=== PATIENT | female | born 1955 | race Caucasian/White ===

== ENCOUNTER → 2024-07-23 13:39 | Outpatient (BNVA) | payer MEDICARE, SELFPAY | PROVIDERS: PCP Family Medicine; Visit Provider Family Medicine | DX: Z00.00 Encounter for general adult medical examination without abnormal findings (principal); R73.09 Other abnormal glucose; Z13.6 Encounter for screening for cardiovascular disorders; E55.9 Vitamin D deficiency, unspecified; R53.81 Other malaise; R53.83 Other fatigue; Z51.81 Encounter for therapeutic drug level monitoring; E53.8 Deficiency of other specified B group vitamins | CPT/HCPCS: 80053; 80061; 82306; 82607; 83036; 84443; 85025 ==

== ENCOUNTER 2024-11-21 16:16 | Emergency (ER) | payer MEDICARE, SELFPAY ==
[2024-11-21 16:22] VITALS: BP 113/64; PULSE 72; O2SAT 92
[2024-11-21 16:27] VITALS: TEMP 36.2
--- NOTE | 2024-11-21 17:39 | XRR_ITS ---
PROCEDURE INFORMATION: Exam: XR Chest Exam date and time: 11/21/2024 5:51 PM Age: 69 years old Clinical indication: Cough; Additional info: Cough, vomiting TECHNIQUE: Imaging protocol: Radiologic exam of the chest. Views: 1 view. COMPARISON: No relevant prior studies available. FINDINGS: Lungs: Streaky left basilar opacities. Pleural spaces: Unremarkable. No pleural effusion. No pneumothorax. Heart/Mediastinum: Unremarkable. No cardiomegaly. Vasculature: Atherosclerotic aortic plaques. Diaphragm: Asymmetric elevation of the left hemidiaphragm. Bones/joints: Unremarkable. XR/XR chest 1V portable [id number] IMPRESSION: Left basilar opacities could represent infiltrate in the correct clinical setting.
--- NOTE | 2024-11-21 17:43 | W.ED.NAVMDI ---
HPI - Nausea/Vomiting/Diarrhea General: Chief complaint: Nausea/Vomiting/Diarrhea Stated complaint: n/v Time Seen by Provider: 11/21/24 16:56 Source: patient and family Mode of arrival: EMS Limitations: no limitations History of Present Illness: Patient is a 69-year-old female with a history of paraplegia that presents to the emergency department by ambulance with a chief complaint of nausea and vomiting. Patient's daughter states she has also had a cough. They deny any known exposure to influenza or COVID and states patient generally stays in the house. Patient has been afebrile. They report the cough began a little bit last night and continued this morning. She denies any fever or chills. She denies any abdominal pain. She denies any pain or burning with urination. EMS reported the patient did have low oxygen at 88% on their arrival. She was placed on 2 L by nasal cannula. On arrival to the emergency department the patient's oxygen saturation was 92% on room air when she was triaged. When I went into the room the patient was on 2 L by nasal cannula again with an oxygenation of 96 %. The patient does not normally use oxygen at home. Will attempt to wean her off during her stay. Associated nausea: Yes Associated symtoms: Reports nausea; Denies anxiety, chest pain, dysuria or headache(s) Related Data Home Medications ?Medication ?Instructions ?Recorded ?Confirmed bupropion HCl 150 mg 24 hr tablet, 150 mg PO QAM 08/09/24 11/09/24 extended release (Wellbutrin XL) Held on 09/02/24. Instructions: While starting Citalopram diphenoxylate-atropine 2.5 1 tab PO Q6H PRN 08/09/24 11/09/24 mg-0.025 mg tablet (Lomotil) phenazopyridine 200 mg tablet 200 mg PO TID PRN dysuria 08/09/24 11/09/24 Previous Rx's ?Medication ?Instructions ?Recorded cyanocobalamin (vitamin B-12) 1,000 mcg PO DAILY #30 tabs 08/15/24 1,000 mcg tablet (Vitamin B-12) atorvastatin 10 mg tablet (Lipitor) 10 mg PO DAILY #30 tabs 08/17/24 baclofen 10 mg tablet 10 mg PO TID #90 tabs 05/07/25 cetirizine 10 mg tablet (Zyrtec) 10 mg PO DAILY PRN allergy 09/02/24 symptoms #30 tabs cholestyramine (with sugar) 4 gram 4 g PO TID #368.76 grams 09/02/24 oral powder citalopram 20 mg tablet 20 mg PO DAILY #30 tabs 09/02/24 diclofenac sodium 1 % topical gel 2 g topical QID #100 grams 09/02/24 fludrocortisone 0.1 mg tablet 0.1 mg PO DAILY #30 tabs 09/02/24 meclizine 12.5 mg tablet 12.5 mg PO BID PRN dizziness #60 09/02/24 tabs pregabalin 75 mg capsule 75 mg PO TID #90 caps 09/02/24 oxycodone 10 mg tablet 10 mg PO Q8H PRN pain 30 days #90 10/21/24 tabs albuterol sulfate 90 mcg/actuation 2 inh inhalation .q4-6h PRN 11/21/24 aerosol inhaler (Ventolin HFA) shortness of breath or wheezing #6.7 grams cefdinir 300 mg capsule 300 mg PO BID #18 caps 11/21/24 doxycycline hyclate 100 mg capsule 100 mg PO Q12H 10 days #20 caps 11/21/24 ondansetron 4 mg disintegrating 4 mg PO .q6-8h PRN nausea and 11/21/24 tablet vomiting #10 tabs Allergies Allergy/AdvReac Type Severity Reaction Status Date / Time No Known Allergies Allergy Verified 11/09/24 13:56 Review of Systems General: Reports: 10 or more systems reviewed and unremarkable except in HPI and below Const: Denies: fever(s) or chills Eyes: Denies: eye discharge or eye redness ENMT: Denies: throat pain, odynophagia or swelling of lips/tongue Card: Denies: chest pain Resp: Reports: non-productive cough; Denies: dyspnea, wheezing or stridor GI: Reports: nausea and vomiting; Denies: abdominal pain or diarrhea : Denies: flank pain, difficulty voiding or dysuria Musc: Denies: neck pain, back pain or extremity pain Skin/Breast: Denies: rash, pruritus or erythema Neuro: Reports: weakness in extremities (Chronic in the lower legs that is unchanged from baseline); Denies: headache(s) or numbness in extremities Psych: Denies: anxiety Endo: Denies: polyuria or polydipsia Reymundo/Lymph: Denies: petechiae All/Imm: Denies: urticaria, throat swelling or tongue swelling PFSH ED PFSH: Medical History (Updated 11/21/24 @ 21:46 by SHAWN Russell) Hypotension Depression Peripheral neuropathy Lower extremity weakness Gait instability Paraplegia Hyperlipidemia Surgical History History of cholecystectomy Hx of hysterectomy H/O cervical spine surgery ~2013 Hx of fracture of right hip Monroe placement in initially. She had a follow up surgery one year later to remake ball and cup Surgeries ~2014 and 2015 Social History (Updated 11/21/24 @ 17:48 by SHAWN Russell) Smoking and tobacco/nicotine status: former use of tobacco/nicotine Quit status (tobacco/nicotine): has quit using Year quit tobacco: 2013 Former quit date comment: Quit after her back surgery - About 40 pack years Alcohol intake: current Alcohol intake frequency: few times a month Alcohol type: wine Substance/Drug Use: never Physical Exam Const: COMMON NORMALS: no acute distress, no limitations and alert GENERAL APPEARANCE: cooperative ORIENTATION/CONSCIOUSNESS: Yes awake HENMT: COMMON NORMALS: normocephalic, atraumatic, external ears normal, EAC's normal, TM's normal bilaterally and Normal external nose present HEAD & SCALP: normocephalic and atraumatic FACE & SINUS: normal facial exam NOSE: Normal external nose present EXTERNAL EAR: Yes external ears normal EXTERNAL AUDITORY CANAL: EAC's normal TYMPANIC MEMBRANE: TM's normal bilaterally MOUTH: Abnormal oral and palatal mucosa present other (Neurology); no drooling and no trismus THROAT: posterior oropharynx normal Eye: COMMON NORMALS: conjunctivae normal CONJUNCTIVA: Yes conjunctivae normal Neck/C-Spine: COMMON NORMALS: full ROM Lymph: LYMPHATIC: no lymphadenopathy noted Resp: COMMON NORMALS: normal respiratory effort and No retractions AUSCULTATION: crackles Laterality: left (Faint crackles left base), no rales, no rhonchi and no wheezes Cardio: COMMON NORMALS: regular rate and regular rhythm RATE: regular rate RHYTHM: regular rhythm GI: COMMON NORMALS: Normal to inspection, nondistended, normoactive bowel sounds present, Soft to palpation and non-tender PALPATION: Yes Soft to palpation Extremity: COMMON NORMALS: no calf tenderness and no pedal edema NARRATIVE EXTREMITY EXAM: Patient does have chronic bilateral lower extremity weakness. She states she can feel light touch but does report tingling at her baseline. Neuro: SENSORIUM/ORIENTATION: Yes alert GAIT: Yes Other gait observations present (Gait not tested due to the paraplegia) MOTOR EXAM: Abnormal motor strength present (Bilateral lower extremity weakness, unchanged from baseline.) Psych: COMMON NORMALS: cooperative and speech normal ATTITUDE: Yes calm SPEECH: Yes normal speech Skin: COMMON NORMALS: no rashes or lesions noted and no petechiae GENERAL SKIN EXAM: no rashes or lesions noted Course Reevaluation(s): Reevaluation #1: Patient was advised of the lab and imaging findings. We are still awaiting a urine sample from the patient. Patient continues to have mild cough. I did put in for some albuterol for her. She has been on 1 L of oxygen with an oxygen saturation between 94 and 96. I will turn off the oxygen to see if we can get her to do better so she can be discharged. Patient does have some questionable left lower lobe infiltrates on the x-ray. She did have some crackles in this area on exam and with her cough and oxygen need I am thinking this probably represents a pneumonia. Time: 19:12 Reevaluation #2: Patient reports that her nausea has resolved with the medication. Her oxygen saturation has come up to 92% on room air. She was given 1 g of Rocephin IV and will be discharged on cefdinir, doxycycline to cover the urinary tract infections and pneumonia as well as some Zofran to help with the nausea and vomiting. Time: 21:39 Vital Signs: Vital signs: Vital Signs Temperature 97.2 F L 11/21/24 16:27 Pulse Rate 72 11/21/24 21:09 Blood Pressure 126/67 11/21/24 21:09 Pulse Oximetry 92 11/21/24 21:09 Oxygen Delivery Me thod Room Air 11/21/24 21:09 Oxygen Flow Rate 1 11/21/24 19:01 MDM - Nausea/Vomiting/Diarrhea Medical Decision Making Patient and her daughter were advised of the exam, lab and imaging findings. The patient does appear to have some left basilar opacities that probably represent an infiltrate. The patient did have crackles on exam and has had a cough. Thankfully, she does not have an elevated white blood cell count or fever. She was noted to have a urinary tract infection as well. She was given 1 g of Rocephin in the emergency department by IV and will be discharged on cefdinir, doxycycline and Zofran for the nausea. She is mildly hypoxic on arrival but we are able to wean the oxygen off and her O2 sats were 92% on room air. She does not have any significant wheezing but was provided with an albuterol inhaler that she can use if she starts to feel short of breath or if she does develop any wheezing. The patient was advised to follow-up with her primary care provider next week for recheck and return to the emergency department with any worsening symptoms. Urine culture is pending. The patient and her daughter expressed understanding. Differential Diagnosis Likely gastroenteritis and dehydration Medical Records I reviewed the patient's medical records. Lab Data I reviewed the patient's lab results. 11/21/24 18:09 11/21/24 18:09 Radiology Impressions Chest X-Ray 11/21/24 17:39 IMPRESSION: Left basilar opacities could represent infiltrate in the correct clinical setting. Laboratory Results WBC 6.93 10^3/uL (3.29-11.43) 11/21/24 18:09 RBC 4.69 10^6/uL (3.85-5.65) 11/21/24 18:09 Hgb 13.60 g/dL (11.27-16.99) 11/21/24 18:09 Hct 43.0 % (36-47) 11/21/24 18:09 MCV 91.7 fl (85-98) 11/21/24 18:09 MCH 29.0 pg (27-33) 11/21/24 18:09 MCHC 31.6 g/dL (30-55) 11/21/24 18:09 RDW 13.9 % (12.1-15.1) 11/21/24 18:09 Plt Count 175 10^3/cmm (157-399) 11/21/24 18:09 MPV 11.2 fL (7.4-10.4) H 11/21/24 18:09 Neut % (Auto) 75.2 % 11/21/24 18:09 Lymph % (Auto) 20.2 % 11/21/24 18:09 [place]pherson % (Auto) 2.9 % 11/21/24 18:09 Eos % (Auto) 0.1 % 11/21/24 18:09 Baso % (Auto) 0.7 % 11/21/24 18:09 Neut # (Auto) 5.21 10^3/uL (1.8-7.7) 11/21/24 18:09 Lymph # (Auto) 1.4 10^3/uL (0.8-4.8) 11/21/24 18:09 [place] # (Auto) 0.2 10^3/uL (0.2-0.9) 11/21/24 18:09 Eos # (Auto) 0.0 10^3/uL (0.0-0.8) 11/21/24 18:09 Baso # (Auto) 0.1 10^3/uL (0.0-0.1) 11/21/24 18:09 Nucleated RBC % (auto) 0 % 11/21/24 18:09 Nucleated RBCs # 0.0 /100WBC 11/21/24 18:09 Sodium 140 mmol/L (136-145) 11/21/24 18:09 Potassium 4.4 mmol/L (3.5-5.1) 11/21/24 18:09 Chloride 101 mmol/L (98-107) 11/21/24 18:09 Carbon Dioxide 26 mmol/L (22-29) 11/21/24 18:09 Anion Gap 17.4 (5-19) 11/21/24 18:09 BUN 11 mg/dL (8-23) 11/21/24 18:09 Creatinine 0.5 mg/dL (0.5-0.9) 11/21/24 18:09 GFR Calculation Not Reportable 11/21/24 18:09 Glucose 104 mg/dL (65-115) 11/21/24 18:09 Calculated Osmolality 290 mOsm/kg (285-295) 11/21/24 18:09 Calcium 8.6 mg/dL (8.5-10.5) 11/21/24 18:09 Total Bilirubin 0.6 mg/dL (0.15-1.2) 11/21/24 18:09 AST 22 U/L (0-32) 11/21/24 18:09 ALT 10 U/L (0-33) 11/21/24 18:09 Alkaline Phosphatase 156 U/L (35-105) H 11/21/24 18:09 Total Protein 6.0 g/dL (6.6-8.7) L 11/21/24 18:09 Albumin 2.8 g/dL (3.5-5.2) L 11/21/24 18:09 Globulin 3.2 g/dL (1.3-4.6) 11/21/24 18:09 Urine Color Yellow (Yellow) 11/21/24 19:54 Urine Appearance Cloudy (CLEAR) A 11/21/24 19:54 Urine pH 5.5 (5-7) 11/21/24 19:54 Ur Specific [place] 1.016 (1.005-1.030) 11/21/24 19:54 Urine Protein 1+ (Negative) A 11/21/24 19:54 Urine Glucose (UA) Negative (Normal) 11/21/24 19:54 Urine Ketones 2+ (Negative) H 11/21/24 19:54 Urine Blood 2+ (Negative) A 11/21/24 19:54 Urine Nitrate Positive (Negative) A 11/21/24 19:54 Urine Bilirubin Negative (Negative) 11/21/24 19:54 Urine Urobilinogen 1.0 mg/dL (Negative) 11/21/24 19:54 Ur Leukocyte Esterase 3+ (Negative) A 11/21/24 19:54 Urine RBC 3-5 /hpf (0-2) 11/21/24 19:54 Urine WBC >100 /hpf (0-5) H 11/21/24 19:54 Ur Squamous Epith Cells 0-5 /hpf (0-5) 11/21/24 19:54 Amorphous Sediment Not Reportable 11/21/24 19:54 Urine Bacteria 4+ /hpf (NONE) H 11/21/24 19:54 Hyaline Casts 2.46 /lpf 11/21/24 19:54 All radiology interpretation(s) finalized by discharge Critical Care Time Critical Care Time: Critical Care Time: No Discharge Plan Discharge Patient Disposition: Home Clinical Impression: Infiltrate of lower lobe of left lung present on imaging study Cough Qualifiers: Cough type: acute Qualified Code(s): R05.1 - Acute cough Urinary tract infection Qualifiers: Urinary tract infection type: acute cystitis Hematuria presence: without hematuria Qualified Code(s): N30.00 - Acute cystitis without hematuria Nausea & vomiting Qualifiers: Vomiting type: unspecified Qualified Code(s): R11.2 - Nausea with vomiting, unspecified Condition: Stable Prescriptions: New cefdinir 300 mg capsule 300 mg PO BID Qty: 18 0RF doxycycline hyclate 100 mg capsule 100 mg PO Q12H 10 Days Qty: 20 0RF ondansetron 4 mg tablet,disintegrating 4 mg PO .q6-8h PRN (Reason: nausea and vomiting) Qty: 10 0RF albuterol sulfate [Ventolin HFA] 90 mcg/actuation HFA aerosol inhaler 2 inh inhalation .q4-6h PRN (Reason: shortness of breath or wheezing) Qty: 6.7 0RF No Action phenazopyridine 200 mg tablet 200 mg PO TID PRN (Reason: dysuria) diphenoxylate-atropine [Lomotil] 2.5-0.025 mg tablet 1 tab PO Q6H PRN bupropion HCl [Wellbutrin XL] 150 mg tablet extended release 24 hr 150 mg PO QAM meclizine 12.5 mg tablet 12.5 mg PO BID PRN (Reason: dizziness) Qty: 60 3RF baclofen 10 mg tablet 10 mg PO TID Qty: 90 3RF citalopram 20 mg tablet 20 mg PO DAILY Qty: 30 6RF fludrocortisone 0.1 mg tablet 0.1 mg PO DAILY Qty: 30 6RF diclofenac sodium 1 % gel 2 g topical QID Qty: 100 6RF Rx Instructions: apply to single elbow, wrist or hand; for hand includes palm/fingers/back of hand cetirizine [Zyrtec] 10 mg tablet 10 mg PO DAILY PRN (Reason: allergy symptoms) Qty: 30 6RF pregabalin 75 mg capsule 75 mg PO TID Qty: 90 2RF cholestyramine (with sugar) 4 gram powder 4 g PO TID Qty: 368.76 2RF Rx Instructions: administer w/meal; avoid other meds within 1hr before or 4-6hr after dose cyanocobalamin (vitamin B-12) [Vitamin B-12] 1,000 mcg tablet 1,000 mcg PO DAILY Qty: 30 6RF atorvastatin [Lipitor] 10 mg tablet 10 mg PO DAILY Qty: 30 6RF oxycodone 10 mg tablet 10 mg PO Q8H PRN (Reason: pain) 30 Days Qty: 90 0RF Discharge Orders: Discharge ED (Routine); Ordered 11/21/24 Ordered By: Mehran Vazquez Referrals: Israel Sebastian MD [Primary Care Provider, Family Practice] Discharge Diet: Advance as tolerated Discharge Activity: Resume usual activity Patient Instructions: Opioid Safety, Pain Management, Patient Portal & Brooke Instructions, Pneumonia (ED), Urinary Tract Infection in Women (ED), Acute Nausea and Vomiting (ED) Activity Restrictions/Additional Instructions: Take the medications as directed. Clear liquid diet for the next 12 to 24 hours then advance to a bland diet as tolerated. Use the inhaler as directed if needed, 2 puffs every 4-6 hours as needed for wheezing or shortness of breath. Follow-up with your doctor next week for recheck. Return to the emergency department with any worsening symptoms. Print Language: Nepalese Coding Level of Care Code ED Assistant Teaching Professor for Davian Rodriguez
[2024-11-21 18:15] LABS: Hematocrit 43.0 % (36-47); Hemoglobin 13.60 g/dL (11.27-16.99); Mean Corpuscular HGB Conc 31.6 g/dL (30-55); Mean Corpuscular Hemoglobin 29.0 pg (27-33); Mean Corpuscular Volume 91.7 fl (85-98); Nucleated Red Blood Cells % 0 %; Platelet Count 175 10^3/cmm (157-399); Red Blood Count 4.69 10^6/uL (3.85-5.65); White Blood Count 6.93 10^3/uL (3.29-11.43)
[2024-11-21] MEDS: ondansetron 2 mg/ML SDV 2 mL 4 MG IVP (18:15)
[2024-11-21 18:50] LABS: Alanine Aminotransferase 10 U/L (0-33); Albumin Level 2.8 g/dL (3.5-5.2); Alkaline Phosphatase 156 U/L (35-105); Anion Gap 17.4 (5-19); Aspartate Amino Transferase 22 U/L (0-32); Blood Urea Nitrogen 11 mg/dL (8-23); Calcium 8.6 mg/dL (8.5-10.5); Carbon Dioxide 26 mmol/L (22-29); Chloride 101 mmol/L (98-107); Globulin 3.2 g/dL (1.3-4.6); Glucose 104 mg/dL (65-115); Osmolality Calculated 290 mOsm/kg (285-295); Potassium 4.4 mmol/L (3.5-5.1); Sodium 140 mmol/L (136-145); Total Protein 6.0 g/dL (6.6-8.7)
[2024-11-21 19:01] VITALS: BP 146/71; PULSE 70; O2SAT 94
[2024-11-21 20:05] LABS: Glucose Urine UA Negative (Normal); Nitrate Urine Positive (Negative); Specific Gravity, Urine 1.016 (1.005-1.030)
[2024-11-21 20:10] LABS: Add Urine Microscopic? YES
[2024-11-21] MEDS: albuterol 8 gm MDI 2 PUFF INHALATION (20:11)
[2024-11-21 20:26] LABS: UA Slide Review UA Slide Review Perf
[2024-11-21] MEDS: cefTRIAXone 1,000 mg SDV 1000 MG IVP (21:07)
[2024-11-21 21:09] VITALS: BP 126/67; PULSE 72; O2SAT 92
[2024-11-21 23:23] VITALS: BP 139/64; PULSE 70; O2SAT 90
== END 2024-11-21 23:24 | disposition home or self-care (01) ==
PROVIDERS: Emergency Provider Physician Assistant; PCP Family Medicine
DX: R05.1 Acute cough (principal); R91.8 Other nonspecific abnormal finding of lung field; N30.00 Acute cystitis without hematuria; R11.2 Nausea with vomiting, unspecified; Z87.891 Personal history of nicotine dependence; E78.5 Hyperlipidemia, unspecified
CPT/HCPCS: 36415; 71045; 80053; 81001; 85025; 87077; 87086; 87186; 96361; 96374; 96375; 99284; J0696; J2405; J3535; J7120

== ENCOUNTER 2025-01-01 21:37 | Emergency (ER) | payer MEDICARE, SELFPAY ==
[2025-01-01 21:44] VITALS: BP 103/56; PULSE 68; RESP 18; TEMP 36.8; O2SAT 94; BMI 22.6
[2025-01-01 22:01] VITALS: BP 98/52; PULSE 72
--- NOTE | 2025-01-01 22:03 | XRR_ITS ---
PROCEDURE INFORMATION: Exam: XR Chest Exam date and time: 01/01/2025 10:10 PM Age: 69 years old Clinical indication: Other: Altered mental status; Additional info: AMS TECHNIQUE: Imaging protocol: Radiologic exam of the chest. 291 image(s) are submitted. Views: 1 view. COMPARISON: CR (CHEST, ) 11/21/2024 5:51 PM FINDINGS: Lungs: Limited evaluation due to oblique nature of the x-ray. Left hemidiaphragm silhouette is further obscured by underlying left lower lobe atelectasis or infiltrate, further progressed since prior study. Small left-sided pleural effusion is difficult to exclude. Borderline cardiomegaly. No pneumothorax seen. Right lung is clear. Pleural spaces: See Lungs finding. Heart/Mediastinum: See Lungs finding. Bones/joints: Unremarkable. XR/XR chest 1V portable [id number] IMPRESSION: Limited evaluation due to oblique nature of the x-ray. Left hemidiaphragm silhouette is further obscured by underlying left lower lobe atelectasis or infiltrate, further progressed since prior study. Small left-sided pleural effusion is difficult to exclude. Borderline cardiomegaly. No pneumothorax seen. Right lung is clear.
--- NOTE | 2025-01-01 22:11 | CTR_ITS ---
PROCEDURE INFORMATION: Exam: CT Head Without Contrast Exam date and time: 01/01/2025 10:30 PM Age: 69 years old Clinical indication: Altered mental status/memory loss; EMS arrival for hallucinations and confusion. ; Additional info: AMS TECHNIQUE: Imaging protocol: Computed tomography of the head without contrast. 3 image(s) are submitted. Radiation optimization: All CT scans at this facility use at least one of these dose optimization techniques: automated exposure control; mA and/or kV adjustment per patient size (includes targeted exams where dose is matched to clinical indication); or iterative reconstruction. COMPARISON: No relevant prior studies available. RADIATION DOSE METRICS: Total DLP (mGy-cm): 1641.78 FINDINGS: Brain: See Cerebral ventricles finding. Cerebral ventricles: Periventricular hypoattenuation is most likely due to small vessel ischemic disease. Paranasal sinuses: Visualized sinuses are unremarkable. No fluid levels. Mastoid air cells: Partial opacification of bilateral mastoid air cell and right-sided middle ear cavity, suggesting sinus disease and possible otitis media. Bones: Unremarkable. No acute fracture. Soft tissues: Unremarkable. CT/CT head wo con* [id number] IMPRESSION: Partial opacification of bilateral mastoid air cell and right-sided middle ear cavity, suggesting sinus disease and possible otitis media. No acute intracranial abnormality identified.
--- NOTE | 2025-01-01 22:35 | W.ED.GENADLT ---
HPI - General Adult General: Chief complaint: General Medical Stated complaint: ABNORMAL VITALS History of Present Illness: 69-year-old female presenting from [place] with altered mental status. Evidently, she had been confused, possibly hallucinating, and had a low blood pressure at [place] upon waking this evening. Blood pressure improved, patient is now alert. Daughter states that she has been saying strange things the last day or 2. She thought she may be getting a urinary tract infection, as the symptoms have been present with prior UTIs. Daughter also noticed that her face was droopy on 1 side, which is a new symptom. Unknown duration this evening. Related Data Home Medications ?Medication ?Instructions ?Recorded ?Confirmed bupropion HCl 150 mg 24 hr tablet, 150 mg PO QAM 08/09/24 11/23/24 extended release (Wellbutrin XL) Held on 09/02/24. Instructions: While starting Citalopram diphenoxylate-atropine 2.5 1 tab PO Q6H PRN 08/09/24 11/23/24 mg-0.025 mg tablet (Lomotil) phenazopyridine 200 mg tablet 200 mg PO TID PRN dysuria 08/09/24 11/23/24 Previous Rx's ?Medication ?Instructions ?Recorded cyanocobalamin (vitamin B-12) 1,000 mcg PO DAILY #30 tabs 08/15/24 1,000 mcg tablet (Vitamin B-12) atorvastatin 10 mg tablet (Lipitor) 10 mg PO DAILY #30 tabs 08/17/24 baclofen 10 mg tablet 10 mg PO TID #90 tabs 09/02/24 cetirizine 10 mg tablet (Zyrtec) 10 mg PO DAILY PRN allergy 09/02/24 symptoms #30 tabs cholestyramine (with sugar) 4 gram 4 g PO TID #368.76 grams 09/02/24 oral powder citalopram 20 mg tablet 20 mg PO DAILY #30 tabs 09/02/24 diclofenac sodium 1 % topical gel 2 g topical QID #100 grams 09/02/24 fludrocortisone 0.1 mg tablet 0.1 mg PO DAILY #30 tabs 09/02/24 meclizine 12.5 mg tablet 12.5 mg PO BID PRN dizziness #60 09/02/24 tabs pregabalin 75 mg capsule 75 mg PO TID #90 caps 09/02/24 oxycodone 10 mg tablet 10 mg PO Q8H PRN pain 30 days #90 10/21/24 tabs albuterol sulfate 90 mcg/actuation 2 inh inhalation .q4-6h PRN 11/21/24 aerosol inhaler (Ventolin HFA) shortness of breath or wheezing #6.7 grams ondansetron 4 mg disintegrating 4 mg PO .q6-8h PRN nausea and 11/21/24 tablet vomiting #10 tabs cefdinir 300 mg capsule 300 mg PO BID #18 caps 01/02/25 Allergies Allergy/AdvReac Type Severity Reaction Status Date / Time No Known Allergies Allergy Verified 11/09/24 13:56 PFSH ED PFSH: Medical History (Updated 01/02/25 @ 02:58 by Juan Jose Sofia DO) Hypotension Depression Peripheral neuropathy Lower extremity weakness Gait instability Paraplegia Hyperlipidemia Surgical History History of cholecystectomy Hx of hysterectomy H/O cervical spine surgery ~2013 Hx of fracture of right hip [place] placement in initially. She had a follow up surgery one year later to remake ball and cup Surgeries ~2014 and 2015 Social History Smoking and tobacco/nicotine status: former use of tobacco/nicotine Quit status (tobacco/nicotine): has quit using Year quit tobacco: 2013 Former quit date comment: Quit after her back surgery - About 40 pack years Alcohol intake: current Alcohol intake frequency: few times a month Alcohol type: wine Substance/Drug Use: never Physical Exam Const: COMMON NORMALS: alert GENERAL APPEARANCE: cooperative and frail appearing ORIENTATION/CONSCIOUSNESS: Yes awake, Yes oriented to person and Yes oriented to place HENMT: COMMON NORMALS: normocephalic, atraumatic and Normal external nose present HEAD & SCALP: normocephalic and atraumatic FACE & SINUS: no ecchymosis and no edema NOSE: Normal external nose present and Normal nares present Eye: COMMON NORMALS: Equal, round and reactive pupils present and EOMs intact bilaterally CONJUNCTIVA: Yes conjunctival abnormal positive left conjunctival injection PUPIL: Yes Equal, round and reactive pupils present Chest: CHEST: Yes Symmetrical chest wall rise Resp: COMMON NORMALS: normal respiratory effort, No use of accessory muscles and clear to auscultation bilaterally AUSCULTATION: clear to auscultation bilaterally Cardio: COMMON NORMALS: regular rate and regular rhythm RATE: regular rate RHYTHM: regular rhythm GI: COMMON NORMALS: Soft to palpation and non-tender PALPATION: Yes Soft to palpation Neuro: SENSORIUM/ORIENTATION: Yes alert, Yes oriented to person and Yes oriented to place CRANIAL NERVES: Yes CN VII (facial) Laterality: right CN VII findings: facial droop (Mild), unable to raise eyebrow(s) and asymmetrical smile COORDINATION/BALANCE: [id number] test normal SPEECH: speech normal SENSORY EXAM: Yes extremities (Intact) MOTOR EXAM: Pronator motor function not present COORDINATION: [id number] test normal Course Vital Signs: Vital signs: Vital Signs Temperature 98.3 F 01/01/25 21:44 Pulse Rate 65 01/02/25 03:27 Respiratory Rate 18 01/01/25 21:44 Blood Pressure 121/64 01/02/25 03:27 Pulse Oximetry 90 01/02/25 03:27 Oxygen Delivery Me thod Room Air 01/01/25 21:44 MDM - General Adult Medical Decision Making The patient answers questions here. She may have a mild right-sided facial droop. No other acute neurologic symptoms. Her potassium was 2.6. Her glucose was 62. CBC and BMP are otherwise not remarkable. Her urinalysis shows greater than 100 white blood cells, some red blood cells, and 2+ leukocyte esterase. Her CRP is elevated. She appears to have a urinary tract infection. She grew E. coli in her urine 1 month ago. She is given IV Rocephin for this. Sensitivities were sensitive at that time. Her potassium was repleted both orally and IV. Chest x-ray she has a potential left lower lobe infiltrate or small effusion. She will be allowed back to the nursing facility on cefdinir. Recheck potassium in 48 hours. Return for any problems. The patient's daughter was counseled on diagnosis and treatment. Lab Data 01/01/25 22:49 01/01/25 22:49 Radiology Impressions Chest X-Ray 01/01/25 22:03 IMPRESSION: Limited evaluation due to oblique nature of the x-ray. Left hemidiaphragm silhouette is further obscured by underlying left lower lobe atelectasis or infiltrate, further progressed since prior study. Small left-sided pleural effusion is difficult to exclude. Borderline cardiomegaly. No pneumothorax seen. Right lung is clear. Head CT 01/01/25 22:11 IMPRESSION: Partial opacification of bilateral mastoid air cell and right-sided middle ear cavity, suggesting sinus disease and possible otitis media. No acute intracranial abnormality identified. Laboratory Results WBC 7.16 10^3/uL (3.29-11.43) 01/01/25 22:49 RBC 4.78 10^6/uL (3.85-5.65) 01/01/25 22:49 Hgb 13.50 g/dL (11.27-16.99) 01/01/25 22:49 Hct 44.9 % (36-47) 01/01/25 22: MCV 93.9 fl (85-98) 01/01/25 22:49 MCH 28.2 pg (27-33) 01/01/25: MCHC 30.1 g/dL (30-55) 01/01/25 22:49 RDW 15.7 % (12.1-15.1) H 01/01/25 22:49 Plt Count 159 10^3/cmm (157-399) 01/01/25 22:49 MPV 11.1 fL (7.4-10.4) H 01/01/25 22:49 Neut % (Auto) 58.8 % 01/01/25 22:49 Lymph % (Auto) 27.7 % 01/01/25 22:49 [place] % (Auto) 9.6 % 01/01/25 22:49 Eos % (Auto) 2.2 % 01/01/25 22:49 Baso % (Auto) 1.0 % 01/01/25 22:49 Neut # (Auto) 4.21 10^3/uL (1.8-7.7) 01/01/25 22:49 Lymph # (Auto) 2.0 10^3/uL (0.8-4.8) 01/01/25 22:49 [place] # (Auto) 0.7 10^3/uL (0.2-0.9) 01/01/25 22:49 Eos # (Auto) 0.2 10^3/uL (0.0-0.8) 01/01/25 22:49 Baso # (Auto) 0.1 10^3/uL (0.0-0.1) 01/01/25 22:49 Nucleated RBC % (auto) 0 % 01/01/25 22:49 Nucleated RBCs # 0.0 /100WBC 01/01/25 22:49 Sodium 147 mmol/L (136-145) H 01/01/25 22:49 Potassium 2.6 mmol/L (3.5-5.1) L* 01/01/25 22:49 Chloride 102 mmol/L (98-107) 01/01/25 22:49 Carbon Dioxide 28 mmol/L (22-29) 01/01/25 22:49 Anion Gap 19.6 (5-19) H 01/01/25 22:49 BUN 9 mg/dL (8-23) 01/01/25 22:49 Creatinine 0.6 mg/dL (0.5-0.9) 01/01/25 22:49 GFR Calculation Not Reportable 01/01/25 22:49 Glucose 62 mg/dL (65-115) L 01/01/25 22:49 POC Glucose 104 mg/dL (70-110) 01/02/25 02:38 Calculated Osmolality 301 mOsm/kg (285-295) H 01/01/25 22:49 Lactic Acid 1.1 mmol/L (0.5-2.2) 01/01/25 22:49 Calcium 8.6 mg/dL (8.5-10.5) 01/01/25 22:49 Total Bilirubin 0.7 mg/dL (0.15-1.2) 01/01/25 22:49 AST 29 U/L (0-32) 01/01/25 22:49 ALT 12 U/L (0-33) 01/01/25 22:49 Alkaline Phosphatase 98 U/L (35-105) 01/01/25 22:49 C-Reactive Protein 31.9 mg/L (0.0-4.9) H 01/01/25 22:49 Total Protein 5.8 g/dL (6.6-8.7) L 01/01/25 22:49 Albumin 2.8 g/dL (3.5-5.2) L 01/01/25 22:49 Globulin 3.0 g/dL (1.3-4.6) 01/01/25 22:49 Urine Color Dark yellow (Yellow) A 01/01/25 23:07 Urine Appearance Turbid (CLEAR) A 01/01/25 23:07 Urine pH 6.0 (5-7) 01/01/25 23:07 Ur Specific [place] 1.016 (1.005-1.030) 01/01/25 23:07 Urine Protein 2+ (Negative) A 01/01/25 23:07 Urine Glucose (UA) Negative (Normal) 01/01/25 23:07 Urine Ketones 1+ (Negative) H 01/01/25 23:07 Urine Blood 3+ (Negative) A 01/01/25 23:07 Urine Nitrate Positive (Negative) A 01/01/25 23:07 Urine Bilirubin Negative (Negative) 01/01/25 23:07 Urine Urobilinogen 1.0 mg/dL (Negative) 01/01/25 23:07 Ur Leukocyte Esterase 2+ (Negative) A 01/01/25 23:07 Urine RBC 21-50 /hpf (0-2) H 01/01/25 23:07 Urine WBC >100 /hpf (0-5) H 01/01/25 23:07 Ur Squamous Epith Cells 6-10 /hpf (0-5) 01/01/25 23:07 Amorphous Sediment Not Reportable 01/01/25 23:07 Urine Bacteria 4+ /hpf (NONE) H 01/01/25 23:07 Hyaline Casts 6.90 /lpf 01/01/25 23:07 Urine Mucus 1+ /hpf 01/01/25 23:07 All radiology interpretation(s) finalized by discharge Discharge Plan Discharge Patient Disposition: Home Clinical Impression: Acute UTI, Acute hypokalemia Condition: Stable Prescriptions: Continued cefdinir 300 mg capsule 300 mg PO BID Qty: 18 0RF No Action phenazopyridine 200 mg tablet 200 mg PO TID PRN (Reason: dysuria) diphenoxylate-atropine [Lomotil] 2.5-0.025 mg tablet 1 tab PO Q6H PRN bupropion HCl [Wellbutrin XL] 150 mg tablet extended release 24 hr 150 mg PO QAM meclizine 12.5 mg tablet 12.5 mg PO BID PRN (Reason: dizziness) Qty: 60 3RF baclofen 10 mg tablet 10 mg PO TID Qty: 90 3RF citalopram 20 mg tablet 20 mg PO DAILY Qty: 30 6RF fludrocortisone 0.1 mg tablet 0.1 mg PO DAILY Qty: 30 6RF diclofenac sodium 1 % gel 2 g topical QID Qty: 100 6RF Rx Instructions: apply to single elbow, wrist or hand; for hand includes palm/fingers/back of hand cetirizine [Zyrtec] 10 mg tablet 10 mg PO DAILY PRN (Reason: allergy symptoms) Qty: 30 6RF pregabalin 75 mg capsule 75 mg PO TID Qty: 90 2RF cholestyramine (with sugar) 4 gram powder 4 g PO TID Qty: 368.76 2RF Rx Instructions: administer w/meal; avoid other meds within 1hr before or 4-6hr after dose cyanocobalamin (vitamin B-12) [Vitamin B-12] 1,000 mcg tablet 1,000 mcg PO DAILY Qty: 30 6RF atorvastatin [Lipitor] 10 mg tablet 10 mg PO DAILY Qty: 30 6RF oxycodone 10 mg tablet 10 mg PO Q8H PRN (Reason: pain) 30 Days Qty: 90 0RF ondansetron 4 mg tablet,disintegrating 4 mg PO .q6-8h PRN (Reason: nausea and vomiting) Qty: 10 0RF albuterol sulfate [Ventolin HFA] 90 mcg/actuation HFA aerosol inhaler 2 inh inhalation .q4-6h PRN (Reason: shortness of breath or wheezing) Qty: 6.7 0RF Discharge Orders: Discharge ED (Routine); Ordered 01/02/25 Ordered By: Juan Jose Sofia Referrals: Israel Sebastian MD [Primary Care Provider, Family Practice] - 1-3 days Patient Instructions: Hypokalemia (ED), Urinary Tract Infection in Older Adults (ED), Opioid Safety, Pain Management, Patient Portal & [place] Instructions Activity Restrictions/Additional Instructions: You need to have your potassium rechecked in 48 hours. Inform your doctor regarding this. Antibiotics for urinary tract infection. As directed. Return for worsening mental status, fever despite 2-3 more doses of antibiotics, any other concerning symptoms. Print Language: Algerian Coding Level of Care Code ED Technical Support Intern for Davian Rodriguez
[2025-01-01 23:00] VITALS: BP 128/63; PULSE 66
[2025-01-01 23:07] LABS: Hematocrit 44.9 % (36-47); Hemoglobin 13.50 g/dL (11.27-16.99); Mean Corpuscular HGB Conc 30.1 g/dL (30-55); Mean Corpuscular Hemoglobin 28.2 pg (27-33); Mean Corpuscular Volume 93.9 fl (85-98); Nucleated Red Blood Cells % 0 %; Platelet Count 159 10^3/cmm (157-399); Red Blood Count 4.78 10^6/uL (3.85-5.65); White Blood Count 7.16 10^3/uL (3.29-11.43)
[2025-01-01 23:22] LABS: Glucose Urine UA Negative (Normal); Nitrate Urine Positive (Negative); Specific Gravity, Urine 1.016 (1.005-1.030)
[2025-01-01 23:24] LABS: Add Urine Microscopic? YES
[2025-01-01 23:30] VITALS: BP 116/72; PULSE 70
[2025-01-01 23:31] LABS: Alanine Aminotransferase 12 U/L (0-33); Albumin Level 2.8 g/dL (3.5-5.2); Alkaline Phosphatase 98 U/L (35-105); Aspartate Amino Transferase 29 U/L (0-32); Blood Urea Nitrogen 9 mg/dL (8-23); Calcium 8.6 mg/dL (8.5-10.5); Carbon Dioxide 28 mmol/L (22-29); Chloride 102 mmol/L (98-107); Creatinine Clr Calc Pharmacy 64.2556; Globulin 3.0 g/dL (1.3-4.6); Glucose 62 mg/dL (65-115); Osmolality Calculated 301 mOsm/kg (285-295); Sodium 147 mmol/L (136-145); Total Protein 5.8 g/dL (6.6-8.7)
[2025-01-01 23:32] LABS: Lactic Sepsis W/Reflex 1.1 mmol/L (0.5-2.2)
[2025-01-01 23:43] LABS: Anion Gap 19.6 (5-19); Potassium 2.6 mmol/L (3.5-5.1)
[2025-01-01 23:47] LABS: UA Slide Review UA Slide Review Perf
[2025-01-02] VITALS: BP 109/51
[2025-01-02 00:31] VITALS: BP 110/63; PULSE 63; O2SAT 92
[2025-01-02] MEDS: potassium chloride oral liq 20 mEq/15 mL UDC 40 MEQ PO (00:37)
[2025-01-02] MEDS: cefTRIAXone 1,000 mg SDV 1000 MG IVP (00:37)
[2025-01-02 01:01] VITALS: BP 118/68; PULSE 67; O2SAT 92
[2025-01-02] MEDS: lidocaine 1% 5 ML in potassium chloride premix 100 ML 52.5 ML IV (01:02)
[2025-01-02 01:30] VITALS: BP 106/69; PULSE 70
[2025-01-02 03:27] VITALS: BP 121/64; PULSE 65; O2SAT 90
== END 2025-01-02 03:21 | disposition home or self-care (01) ==
PROVIDERS: Emergency Provider Emergency Medicine; PCP Family Medicine
DX: N39.0 Urinary tract infection, site not specified (principal); E87.6 Hypokalemia; Z87.891 Personal history of nicotine dependence; E78.5 Hyperlipidemia, unspecified
CPT/HCPCS: 36416; 70450; 71045; 80053; 81001; 82962; 83605; 85025; 86140; 87077; 87086; 87186; 96365; 96366; 96375; 99285; J0696; J3480; J7030; J7799; J9999

== ENCOUNTER 2025-01-15 00:18 | Inpatient (IN) | payer MEDICARE, SELFPAY ==
[2025-01-15] VITALS (9 sets, daily range): BP systolic 94–105; BP diastolic 51–67; PULSE 65–78; RESP 14–18; TEMP 36.7–36.9; O2SAT 91–96; BMI 21.1
--- NOTE | 2025-01-15 00:48 | XRR_ITS ---
PROCEDURE INFORMATION: Exam: XR Right Tibia and Fibula Exam date and time: 01/15/2025 12:52 AM Age: 69 years old Clinical indication: Pain and injury or trauma; Fall; Blunt trauma; Lower leg; Right; Additional info: HX of fall, report of FX from outside XR TECHNIQUE: Imaging protocol: Radiologic exam of the right tibia and fibula. Views: 2 views. COMPARISON: No relevant prior studies available. FINDINGS: Bones/joints: Mildly displaced bimalleolar fractures. The remaining imaged osseous structures are intact. The bones appear osteopenic. Soft tissues: Bimalleolar soft tissue edema is present. XR/XR tibia fibula RT 2V [id number] IMPRESSION: 1. Mildly displaced bimalleolar fractures. 2. Osteopenia. 3. Bimalleolar soft tissue edema, consistent with soft tissue/ligamentous injury. 4. Given substantial osteopenia, recommend CT ankle to exclude occult ankle fractures.
--- NOTE | 2025-01-15 00:48 | XRR_ITS ---
PROCEDURE INFORMATION: Exam: XR Pelvis Exam date and time: 01/15/2025 1:30 AM Age: 69 years old Clinical indication: Injury or trauma; Fall; Blunt trauma (contusions or hematomas); Bilateral; Prior surgery; Surgery date: 6+ months; Surgery type: Bilat hips; Additional info: HX of hip dislocation, leg pain today TECHNIQUE: Imaging protocol: Radiologic exam of the pelvis. Views: 1 or 2 view. COMPARISON: No relevant prior studies available. 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 Proximal femoral cerclage is noted. Surgical components appear well aligned and without evidence of failure/loosening. No acute periprosthetic fracture is noted on this single AP view. The remaining imaged osseous structures are intact. Osseous alignment is normal. Soft tissues: Unremarkable. XR/XR pelvis 1-2V* [id number] IMPRESSION: No acute fracture or dislocation within the limits of the single AP view exam. If high clinical concern for acute osseous injury is present, CT pelvis without contrast is warranted.
--- NOTE | 2025-01-15 00:48 | XRR_ITS ---
PROCEDURE INFORMATION: Exam: XR Left Tibia and Fibula Exam date and time: 01/15/2025 1:10 AM Age: 69 years old Clinical indication: Pain; Lower leg; Left; Additional info: HX of fall, possible FX TECHNIQUE: Imaging protocol: Radiologic exam of the left tibia and fibula. Views: 2 views. COMPARISON: No relevant prior studies available. FINDINGS: Bones/joints: The bones appear osteopenic. No acute fracture. Osseous alignment is normal. Soft tissues: Normal. XR/XR tibia fibula LT 2V [id number] IMPRESSION: 1. Suggested osteopenia. 2. No acute osseous abnormality.
[2025-01-15 01:17] LABS: Hematocrit 41.2 % (36-47); Hemoglobin 13.30 g/dL (11.27-16.99); Mean Corpuscular HGB Conc 32.3 g/dL (30-55); Mean Corpuscular Hemoglobin 28.7 pg (27-33); Mean Corpuscular Volume 89.0 fl (85-98); Nucleated Red Blood Cells % 0 %; Platelet Count 279 10^3/cmm (157-399); Red Blood Count 4.63 10^6/uL (3.85-5.65); White Blood Count 8.90 10^3/uL (3.29-11.43)
[2025-01-15 01:38] LABS: Alanine Aminotransferase 13 U/L (0-33); Albumin Level 2.7 g/dL (3.5-5.2); Alkaline Phosphatase 100 U/L (35-105); Anion Gap 13.3 (5-19); Aspartate Amino Transferase 19 U/L (0-32); Blood Urea Nitrogen 13 mg/dL (8-23); Calcium 8.7 mg/dL (8.5-10.5); Carbon Dioxide 34 mmol/L (22-29); Chloride 99 mmol/L (98-107); Creatinine Clr Calc Pharmacy 62.5743; Globulin 3.2 g/dL (1.3-4.6); Glucose 81 mg/dL (65-115); Magnesium 1.8 mg/dL (1.7-2.3); Osmolality Calculated 297 mOsm/kg (285-295); Sodium 144 mmol/L (136-145); Total Protein 5.9 g/dL (6.6-8.7)
[2025-01-15 01:42] LABS: Potassium 2.3 mmol/L (3.5-5.1)
[2025-01-15] MEDS: lidocaine 1% 5 ML in potassium chloride premix 100 ML 26.25 ML IV (02:47)
--- NOTE | 2025-01-15 02:48 | CTR_ITS ---
PROCEDURE INFORMATION: Exam: CT Right Lower Extremity Without Contrast, Ankle Exam date and time: 01/15/2025 3:05 AM Age: 69 years old Clinical indication: Abnormal findings; Abnormal imaging study; XR tib fib; Additional info: Known FX, ? acuity TECHNIQUE: Imaging protocol: CT of the right lower extremity without contrast was performed. Exam focused on the ankle. Radiation optimization: All CT scans at this facility use at least one of these dose optimization techniques: automated exposure control; mA and/or kV adjustment per patient size (includes targeted exams where dose is matched to clinical indication); or iterative reconstruction. COMPARISON: CR (LOW EXM, ) 01/15/2025 12:52 AM RADIATION DOSE METRICS: Total DLP (mGy-cm): 151.28 FINDINGS: Bones/joints: There is severe osteopenia. Acute transverse fracture at the distal tibial metaphysis with mild impaction. No significant angulation or intra-articular extension. Acute Vaughn B lateral malleolar fracture with mild impaction but without significant displacement or angulation. No widening ankle mortise. Soft tissues: Normal. CT/CT ankle RT wo con* [id number] IMPRESSION: 1. Acute transverse fracture at the distal tibial metaphysis with mild impaction. No significant angulation or intra-articular extension. 2. Acute Vaughn B lateral malleolar fracture with mild impaction but without significant displacement or angulation.
[2025-01-15 03:05] LABS: Glucose Urine UA Negative (Normal); Nitrate Urine Positive (Negative); Specific Gravity, Urine 1.017 (1.005-1.030)
[2025-01-15 03:10] LABS: Add Urine Microscopic? YES
--- NOTE | 2025-01-15 03:20 | ED_ITS ---
HPI - Extremity Problem 2 General: Chief complaint: Extremity Injury, Lower Stated complaint: RT rib fx x 9 days ago History of Present Illness: 69 yo F with Hx of dementia and prior ri ght hip fracture with subsequent hardware presents with right lower leg/ankle pain and increased right foot droop. Per daughter, bruising and a small laceration on the metz were noted days ago; facility staff gave inconsistent accounts of an injury during transfers. Pt has chronic plantar flexion/inversion of the right ankle, reportedly worse now. Today at [facility], x-rays were reportedly obtained showing fractures of ?both top and bottom bone? on the right, and pt was sent to the ER due to pain (pt often refuses pain meds). Daughter denies clear recollection from pt due to dementia. No clear new hip pain reported; daughter notes longstanding bedbound status (~1 year). Two weeks ago pt was seen for UTI; K was 2.5. Daughter reports intermittent hallucination-like statements. ROS otherwise limited by dementia. Related Data Home Medications ?Medication ?Instructions ?Recorded ?Confirmed bupropion HCl 150 mg 24 hr tablet, 150 mg PO QAM 08/0911/23/24 extended release (Wellbutrin XL) Held on 09/02/24. Instructions: While starting Citalopram diphenoxylate-atropine 2.5 1 tab PO Q6H PRN 08/09/24 0 11/23/24 mg-0.025 mg tablet (Lomotil) phenazopyridine 200 mg tablet 200 mg PO TID PRN dysuri a 08/09/24 11/23/24 Previous Rx's ?Medication ?Instructions ?Recorded cyanocobalamin (vitamin B-12) 1,000 mcg PO DAILY #30 t abs 08/15/24 1,000 mcg tablet (Vitamin B-12) atorvastatin 10 mg tablet (Lipitor) 10 mg PO DAILY #30 tabs 08/17/24 baclofen 10 mg tablet 10 mg PO TID #90 tabs cetirizine 10 mg tablet (Zyrtec) 10 mg PO DAILY PRN al lergy 09/02/24 symptoms #30 tabs cholestyramine (with sugar) 4 gram 4 g PO TID #368.76 grams 09/02/24 oral powder citalopram 20 mg tablet 20 mg PO DAILY #30 tabs 0511/20 diclofenac sodium 1 % topical gel 2 g topical QID #100 grams 09/02/24 fludrocortisone 0.1 mg tablet 0.1 mg PO DAILY #30 tabs 09/02/24 meclizine 12.5 mg tablet 12.5 mg PO BID PRN dizziness #60 09/02/24 tabs oxycodone 10 mg tablet 10 mg PO Q8H PRN pain 30 day s #90 10/21/24 tabs albuterol sulfate 90 mcg/actuation 2 inh inhalation .q 4-6h PRN 11/21/24 aerosol inhaler (Ventolin HFA) shortness of breath or wheezing #6.7 grams ondansetron 4 mg disintegrating 4 mg PO .q6-8h PRN grace sea and 11/21/24 tablet vomiting #10 tabs cefdinir 300 mg capsule 300 mg PO BID #18 caps 01/02 pregabalin 75 mg capsule 75 mg PO TID #90 caps Allergies Allergy/AdvReac Type Severity Reaction Status Date / Time No Known Allergies Allergy Verified 11/09/24 13:56 PFSH ED 2 PFSH: Medical History (Updated 01/15/25 @ 03:31 by Familia Cortez MD) Hypotension Depression Peripheral neuropathy Lower extremity weakness Gait instability Paraplegia Hyperlipidemia Surgical History History of cholecystectomy Hx of hysterectomy H/O cervical spine surgery ~2013 Hx of fracture of right hip Monroe placement in initially. She had a follow up surgery one year later to remake ball and cup Surgeries ~2014 and 2015 Social History Smoking and tobacco/nicotine status: former use of tobacco/nicotine Quit status (tobacco/nicotine): has quit using Year quit tobacco: 2013 Former quit date comment: Quit after her back surgery - About 40 pack years Alcohol intake: current Alcohol intake frequency: few times a month Alcohol type: wine Substance/Drug Use: never Physical Exam 2 Narrative: EXAM NARRATIVE: Gen: Alert, pleasant, baseline dementia per daughter. Psych: Pleasantly demented; possible hallucinations per history. Extremities: Very limited motion of bilateral legs. No obvious length discrepancy or external rotation to suggest acute hip dislocation. MSK: Chronic plantar flexion and inversion of right ankle per daughter, possibly more pronounced today; no obvious new deformity appreciated beyond chronic changes. Skin: Bruising on anterior left metz. Approximately 1.5 cm linear partial- thickness laceration on metz, subacute and not amenable to primary repair. Neuro: Oriented baseline unclear due to dementia; exam otherwise limited by cooperation. HENMT: COMMON NORMALS: normocephalic and atraumatic HEAD & SCALP: n ormocephalic and atraumatic Eye: COMMON NORMALS: Equal, round and reactive pupils present, EOMs intact bilaterally and no scleral icterus PUPIL: Yes Equal, round and reactive pupils present Resp: COMMON NORMALS: normal respiratory effort and No retractions Cardio: COMMON NORMALS: regular rate, regular rhythm and No murmurs present (Cardio) RATE: regular rate RHYTHM: regular rhythm GI: COMMON NORMALS: Normal to inspection, nondistended, normoactive bowel sounds present, Soft to palpation and non-tender PALPATION: Yes Soft to palpation Course 2 Vital Signs: Vital signs: Vital Signs Temperature 98.4 F 01/15/25 00:24 Pulse Rate 72 01/15/25 00:58 Respiratory Rate 16 01/15/25 00:58 Blood Pressure 105/61 01/15/25 00:58 Pulse Oximetry 96 01/15/25 00:58 Oxygen Delivery Me thod Room Air 01/15/25 00:58 Oxygen Flow Rate 2 01/15/25 00:24 MDM - Extremity (Nontraumatic) Medical Decision Making 69 yo F with dementia, chronic R ankle plantar flexion/inversion, prior R hip hardware, presents with R leg/ankle pain after unclear transfer-related injury. Daughter reports recent bruising and metz laceration; [facility] reportedly found R tibia/fibula fractures. Recent UTI and K 2.5 two weeks ago; ongoing eye irritation and intermittent hallucinations. PE: limited bilateral leg motion; chronic R ankle deformity more pronounced per daughter; metz bruising and subacute 1.5 cm laceration; no obvious signs of acute hip dislocation. Pertinent prior data: two weeks ago UTI; K 2.5. Outside report today of R tibia/fibula fractures on x-ray. Repeat potassium is 2.3 and will be repleted both orally and by IV here in the emergency department. Magnesium level was checked and is found at the lower limits of normal range and will be repleted. Urinalysis shows evidence of infection. Culture will be sent and she will be started on antibiotics. X-ray shows a distal tibia fracture on the right leg but I am uncertain of the chronicity of this fracture given her chronic deformity of the ankle. CT scan will be obtained to better evaluate whether this fracture occurred recently or long ago. Should be admitted to the hospitalist service for treatment of UTI and hypokalemia. Lab Data 01/15/25 01:10 01/15/25 01:10 Radiology Impressions Pelvis X-Ray 01/15/25 00:48 IMPRESSION: No acute fracture or dislocation within the limits of the single AP view exam. If high clinical concern for acute osseous injury is present, CT pelvis without contrast is warranted. Tibia/Fibula X-Ray 01/15/25 00:48 IMPRESSION: 1. Mildly displaced bimalleolar fractures. 2. Osteopenia. 3. Bimalleolar soft tissue edema, consistent with soft tissue/ligamentous injury. 4. Given substantial osteopenia, recommend CT ankle to exclude occult ankle fractures. Ankle CT 01/15/25 02:48 IMPRESSION: 1. Acute transverse fracture at the distal tibial metaphysis with mild impaction. No significant angulation or intra-articular extension. 2. Acute Vaughn B lateral malleolar fracture with mild impaction but without significant displacement or angulation. Laboratory Results WBC 8.90 10^3/uL (3.29-11.43) 01/15/25 01:10 RBC 4.63 10^6/uL (3.85-5.65) 01/15/25 01:10 Hgb 13.30 g/dL (11.27-16.99) 01/15/25 01:10 Hct 41.2 % (36-47) 01/15/25 01:10 MCV 89.0 fl (85-98) 01/15/25 01:10 MCH 28.7 pg (27-33) 01/15/25 01:10 MCHC 32.3 g/dL (30-55) 01/15/25 01:10 RDW 16.1 % (12.1-15.1) H 01/15/25 01:10 Plt Count 279 10^3/cmm (157-399) 01/15/25 01:10 MPV 11.3 fL (7.4-10.4) H 01/15/25 01:10 Neut % (Auto) 52.8 % 01/15/25 01:10 Lymph % (Auto) 33.6 % 01/15/25 01:10 [place] % (Auto) 10.6 % 01/15/25 01:10 Eos % (Auto) 1.7 % 01/15/25 01:10 Baso % (Auto) 0.6 % 01/15/25 01:10 Neut # (Auto) 4.71 10^3/uL (1.8-7.7) 01/15/25 01:10 Lymph # (Auto) 3.0 10^3/uL (0.8-4.8) 01/15/25 01:10 [place] # (Auto) 0.9 10^3/uL (0.2-0.9) 01/15/25 01:10 Eos # (Auto) 0.2 10^3/uL (0.0-0.8) 01/15/25 01:10 Baso # (Auto) 0.1 10^3/uL (0.0-0.1) 01/15/25 01:10 Nucleated RBC % (auto) 0 % 01/15/25 01:10 Nucleated RBCs # 0.0 /100WBC 01/15/25 01:10 Sodium 144 mmol/L (136-145) 01/15/25 01:10 Potassium 2.3 mmol/L (3.5-5.1) L* 01/15/25 01:10 Chloride 99 mmol/L (98-107) 01/15/25 01:10 Carbon Dioxide 34 mmol/L (22-29) H 01/15/25 01:10 Anion Gap 13.3 (5-19) 01/15/25 01:10 BUN 13 mg/dL (8-23) 01/15/25 01:10 Creatinine 0.6 mg/dL (0.5-0.9) 01/15/25 01:10 GFR Calculation Not Reportable 01/15/25 01:10 Glucose 81 mg/dL (65-115) 01/15/25 01:10 Calculated Osmolality 297 mOsm/kg (285-295) H 01/15/25 01:10 Calcium 8.7 mg/dL (8.5-10.5) 01/15/25 01:10 Magnesium 1.8 mg/dL (1.7-2.3) 01/15/25 01:10 Total Bilirubin 0.7 mg/dL (0.15-1.2) 01/15/25 01:10 AST 19 U/L (0-32) 01/15/25 01:10 ALT 13 U/L (0-33) 01/15/25 01:10 Alkaline Phosphatase 100 U/L (35-105) 01/15/25 01:10 Total Protein 5.9 g/dL (6.6-8.7) L 01/15/25 01:10 Albumin 2.7 g/dL (3.5-5.2) L 01/15/25 01:10 Globulin 3.2 g/dL (1.3-4.6) 01/15/25 01:10 Urine Color Dark yellow (Yellow) A 01/15/25 03:00 Urine Appearance Turbid (CLEAR) A 01/15/25 03:00 Urine pH 6.5 (5-7) 01/15/25 03:00 Ur Specific [place] 1.017 (1.005-1.030) 01/15/25 03:00 Urine Protein 2+ (Negative) A 01/15/25 03:00 Urine Glucose (UA) Negative (Normal) 01/15/25 03:00 Urine Ketones Trace (Negative) 01/15/25 03:00 Urine Blood 3+ (Negative) A 01/15/25 03:00 Urine Nitrate Positive (Negative) A 01/15/25 03:00 Urine Bilirubin Negative (Negative) 01/15/25 03:00 Urine Urobilinogen 1.0 mg/dL (Negative) 01/15/25 03:00 Ur Leukocyte Esterase 3+ (Negative) A 01/15/25 03:00 Urine RBC 21-50 /hpf (0-2) H 01/15/25 03:00 Urine WBC >100 /hpf (0-5) H 01/15/25 03:00 Ur Squamous Epith Cells 0-5 /hpf (0-5) 01/15/25 03:00 Amorphous Sediment Not Reportable 01/15/25 03:00 Urine Bacteria 4+ /hpf (NONE) H 01/15/25 03:00 Hyaline Casts 19.43 /lpf 01/15/25 03:00 No radiology studies performed this visit Discharge Plan Discharge Patient Disposition: Admitted As Inpatient Clinical Impression: Acute UTI, Hypokalemia Fracture of distal end of right tibia Qualifiers: Encounter type: initial encounter Fracture type: closed Fracture morphology: u nspecified fracture morphology Qualified Code(s): S82.301A - Unspecified fracture of lower end of right tibia, initial encounter for closed fracture Condition: Stable Coding Level of Care Code ED Half Backer for Davain Rodriguez
--- NOTE | 2025-01-15 03:25 | ECG_ITS ---
[facility] Test Date: 2025-01-15 Pat Name: Olesay Lewis Department: Room: 279 Gender: Female Corporate Claims Examiner: : 1955 Requested By: Familia Ybarra Order Number: [id number] Del MD: Miles Eaton M.D. Measurements Intervals [place] Rate: 73 P: 0 CT: 0 QRS: 10 QRSD: 76 T: -58 QT: 254 QTc: 281 Interpretive Statements SUPRAVENTRICULAR RHYTHM, BASELINE ARTIFACT LOW QRS VOLTAGE IN PRECORDIAL LEADS [QRS DEFLECTION < 1.0 mV IN CHEST LEADS] ANTEROSEPTAL MYOCARDIAL INFARCTION , OF INDETERMINATE AGE [40+ ms Q WAVE IN V1-V4] No previous ECG available for comparison Electronically Signed On 01-16-2025 13:08:15 CDT by Miles Eaton M.D. [email or web address] [id number]
[2025-01-15] MEDS: cefTRIAXone 1,000 mg SDV 1000 MG IVP (03:45)
--- NOTE | 2025-01-15 03:46 | PC.NURSE ---
WHILE PERFORMING EKG, TECH NOTED SKIN ABNORMALITY UNDER THE BILATERAL BREASTS, UPON INSPECTION A PROBABLE YEAST INFECTION IS NOTED. DAUGHTER (POA AT BEDSIDE) AND MD WERE NOTIFIED
--- NOTE | 2025-01-15 04:48 | P.HP_ITS ---
Providers/Chief Complaint 2 Admitting Physician: Matias Luong MD Primary Care Provider: Israel Sebastian MD Chief Complaint: RT rib fx x 9 days ago History of Present Illness Olesya Lewis is a 69 year old female comes in from [facility]. Daughter Dedra Barnard phone #[phone] gives most of the history. She states that was few x-rayed her ankle and noticed a fracture and recommended that patient be brought into the emergency department. Dr. Cortez confirms right ankle fracture but also urinary tract infection and hypokalemia. Patient is referred for admission. Dedra tells me that patient was living in [facility] until June. Patient's had in May of lung cancer. Dedra moved her mother to [place] under her care until a month ago. Dedra was unable to continue the level of care needed and placed her at [facility] which she thought was the best [facility] She noted that patient had bruising and abrasions on her lower shins and patient said that she fell but she is bedridden and so that did not make sense. Dedra spoke with many staff members at the [facility] receiving inconsistent reports i.e. #1 staff member stated patient's leg hit a chair but this did not explain bilateral injuries #2 a person said that her legs got tangled in the sheets and she suffered an injury but did not fall #3 patient was weighing and suffered a skin tear reopening but that did not make sense because the patient did have any skin tears when she was placed a month ago #4 staff member said that her feet looked worse but could not explain why Dedra decided the patient need to be moved and move her to [place] today and [place] immediately did x-ray and found the fracture. History of immobility is as follows patient has neck spinal cyst 11 years ago this was removed and took 3 to 4 months to get her walking but then she suffered a right hip fracture which was repaired and then she suffered another hip fracture where the ball went through the acetabulum and she had to have the acetabulum repaired. She did not walk after that and was wheelchair-bound after the second repair. She became bedridden within the last few months. Dedra thinks the patient has had loss of bowel or bladder sensation or leads to decrease in sensation since her spine injury. Patient has hesitancy and recurrent UTI. I reviewed chart which shows E. coli and Pseudomonas that are both not resistant organisms. Dedra is a azoz-et-urov mom with children ages 15, 17, 19, and 25. Patient quit tobacco 11 years ago alcohol is occasional but none in the last 6 months no drugs ever she worked in [employer] Systems 2 Narrative: General no fevers chills she has had some weight loss based on physical appearance Cardiovascular no chest pain palpitations or edema Respiratory positive for cough and wheezing GI positive for nausea vomiting earlier in the week also has diarrhea chronically takes Imodium and Questran. 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 Instructions: While starting Citalopram diphenoxylate-atropine 2.5 1 tab PO Q6H PRN 08/09/24 0 11/23/24 Unknown History mg-0.025 mg tablet (Lomotil) phenazopyridine 200 mg tablet 200 mg PO TID PRN dysuri a 08/09/24 11/23/24 Unknown History cyanocobalamin (vitamin B-12) 1,000 mcg PO DAILY #30 t abs 08/15/24 11/23/24 Unknown Rx 1,000 mcg tablet (Vitamin B-12) atorvastatin 10 mg tablet (Lipitor) 10 mg PO DAILY #30 tabs 08/17/24 11/23/24 Unknown Rx baclofen 10 mg tablet 10 mg PO TID #90 tabs 11/23/24 Unknown Rx cetirizine 10 mg tablet (Zyrtec) 10 mg PO DAILY PRN al lergy 09/02/24 11/23/24 Unknown Rx symptoms #30 tabs cholestyramine (with sugar) 4 gram 4 g PO TID #368.76 grams 09/02/24 11/23/24 Unknown Rx oral powder citalopram 20 mg tablet 20 mg PO DAILY #30 tabs 05/0 11/2011/23/24 Unknown Rx diclofenac sodium 1 % topical gel 2 g topical QID #100 grams 09/02/24 11/23/24 Unknown Rx fludrocortisone 0.1 mg tablet 0.1 mg PO DAILY #30 tabs 09/02/24 11/23/24 Unknown Rx meclizine 12.5 mg tablet 12.5 mg PO BID PRN dizziness #60 09/02/24 11/23/24 Unknown Rx tabs oxycodone 10 mg tablet 10 mg PO Q8H PRN pain 30 day s #90 10/21/24 11/23/24 Unknown Rx tabs albuterol sulfate 90 mcg/actuation 2 inh inhalation .q 4-6h PRN 11/21/24 11/23/24 Unknown Rx aerosol inhaler (Ventolin HFA) shortness of breath or wheezing #6.7 grams ondansetron 4 mg disintegrating 4 mg PO .q6-8h PRN grace sea and 11/21/24 11/23/24 Unknown Rx tablet vomiting #10 tabs cefdinir 300 mg capsule 300 mg PO BID #18 caps 01/02 Unknown Rx pregabalin 75 mg capsule 75 mg PO TID #90 caps Unknown Rx Allergies Allergy/AdvReac Type Severity Reaction Status Date / Time No Known Allergies Allergy Verified 11/09/24 13:56 PFSH Acute 2 PFSH: Medical History (Updated 01/15/25 @ 03:31 by Familia Cortez MD) Hypotension Depression Peripheral neuropathy Lower extremity weakness Gait instability Paraplegia Hyperlipidemia Surgical History History of cholecystectomy Hx of hysterectomy H/O cervical spine surgery ~2013 Hx of fracture of right hip Monroe placement in initially. She had a follow up surgery one year later to remake ball and cup Surgeries ~2014 and 2015 Social History (Updated 01/15/25 @ 05:35 by Matias Luong MD) Smoking and tobacco/nicotine status: former use of tobacco/nicotine Quit status (tobacco/nicotine): has quit using Year quit tobacco: 2013 Former quit date comment: Quit after her back surgery - About 40 pack years Alcohol intake: current Alcohol intake frequency: holidays/special occasions only Alcohol type: wine Alcohol use comment: None in 6 months as of 01/15/2025 Substance/Drug Use: never Additional social history: Wants limited interventions and DO NOT RESUSCITATE status as discussed 01/15/2025 with Matias Luong MD and daughter Dedra Barnard phone #[phone] Current occupational status: retired Previous occupational history: Retired from mortgage industry Vitals/I&O/Wt Last Vital Signs Temp 98.4 F 01/15/25 00:24 Pulse 78 01/15/25 04:05 Resp 16 01/15/25 04:05 BP 102/62 01/15/25 04:05 Pulse Ox 95 01/15/25 04:05 O2 Del Method Room Air 01/15/25 00:58 O2 Flow Rate 2 01/15/25 00:24 01/14/25 01/14/25 01/15/25 14:59 22:59 06:59 Intake Total 0 / 0 Balance 0 / 0 Weight last 48 hrs Weight 61.235 kg Physical Exam 2 Narrative: General Well-developed chronically ill-appearing female well- nourished CV regular rate and rhythm Lungs clear but poor effort and air movement Abdomen diminished bowel tones soft nontender Calves 1+ to 2 bilateral pretibial edema of the right ankle with mild angulation deformity at the distal lower leg Skin warm and dry Data 01/15/25 01:10 01/15/25 01:10 A&P Assessment and plan 1. Hypokalemia: Patient is admitted for potassium replacement she received 40 mg p.o. and 40 mill colons IV in the emergency department. Magnesium level 1.8 was replaced with 400 mg p.o. Given the patient has diarrhea I am going to give her a dose of 2 g IV mag sulfate. Continue with potassium chloride 40 mg every 6 hours for 4 doses checking BMP twice a day 2. Acute UTI: Start ciprofloxacin 500 mg twice a day 3. Fracture of distal end of right tibia: Will consult orthopedic surgeon in the morning. Patient is nonambulatory. This may be best served with a cast. Start calcium and vitamin D replacement due to notable osteopenia on x-rays 4. Diarrhea: This is chronic. She may be losing potassium from diarrhea or from being found with Questran 5. Paraplegia: Longstanding. Patient had been resistant to physical therapy in the past not deeming it worth the value to get physical therapy at home to walk around the room. She became subsequently nonambulatory. Ambulation is not a current goal for recovery Plan: We discussed options of comfort care vs limited interventions and DO NOT RESUSCITATE status which the patient chose. They do not desire CPR or life support PDMP PDMP Reviewed: Not Reviewed Attestations 2 Medical Necessity Statement*: Patient to the hospital with hypokalemia, ankle fracture and UTI and expected to require greater than 2 midnights in the hospital Coding Level of Care Code 59733 Diagnoses Hypokalemia E87.6 Acute UTI N39.0 Fracture of distal end of right tibia S82.301A Diarrhea R19.7 Paraplegia G82.20 Time Spent (min) 70
[2025-01-15] MEDS: heparin 5,000 unit/mL INJ 1 mL 5000 UNIT SUBCUT ×2 (05:01→12:20)
[2025-01-15 05:14] LABS: Lactic Sepsis W/Reflex 1.8 mmol/L (0.5-2.2)
[2025-01-15 05:24] LABS: Thyroid Stimulating Hormone 7.66 uIU/mL (0.27-4.20)
[2025-01-15] MEDS: potassium phosphate (mMol PO4) 15 MMOL in sodium chloride 0.9% (100 ml) 100 ML 47 MMOL IV (07:59)
[2025-01-15] MEDS: cholestyramine powder 4 gm Pkt PO (08:09)
[2025-01-15] MEDS: oxyCODONE 5 mg IR Tab/Cap 10 MG PO (08:10)
[2025-01-15] MEDS: ATORVASTATIN 10 MG TABLET PO (08:11)
[2025-01-15] MEDS: erythromycin Op Oint 1 gm 1 APPLIC EYE-RIGHT ×2 (08:11→12:25)
[2025-01-15] MEDS: diclofenac 1% Topical Gel 100 gm 4 APPLIC TOPICAL ×2 (08:12→12:26)
--- NOTE | 2025-01-15 09:41 | PC.SOCIAL ---
IMM Updated Updated pt's daughter on IMM. No questions voiced. Provided pt a copy. Initialed, dated, & timed a copy & placed in chart.
[2025-01-15] MEDS: potassium chloride oral liq 20 mEq/15 mL UDC PO (11:12)
[2025-01-15 11:20] LABS: Alanine Aminotransferase 12 U/L (0-33); Albumin Level 2.5 g/dL (3.5-5.2); Alkaline Phosphatase 97 U/L (35-105); Anion Gap 12.8 (5-19); Aspartate Amino Transferase 17 U/L (0-32); Blood Urea Nitrogen 14 mg/dL (8-23); Calcium 8.4 mg/dL (8.5-10.5); Carbon Dioxide 34 mmol/L (22-29); Chloride 102 mmol/L (98-107); Creatinine Clr Calc Pharmacy 62.5743; Globulin 3.0 g/dL (1.3-4.6); Glucose 77 mg/dL (65-115); Osmolality Calculated 299 mOsm/kg (285-295); Potassium 3.8 mmol/L (3.5-5.1); Sodium 145 mmol/L (136-145); Total Protein 5.5 g/dL (6.6-8.7)
--- NOTE | 2025-01-15 11:34 | PM.CONSULT ---
Providers/Reason For Consult Consulting Physician/Specialty*: Jayro Nunez D.P.M./podiatry Reason for Consult*: Right ankle fracture Attending Physician: Tish Loving MD Primary Care Provider: Israel Sebastian MD History of Present Illness History of Present Illness 69 yo F with Hx of dementia and prior right hip fracture with subsequent hardware presents with right lower leg/ankle pain and increased right foot droop. Pt has chronic contracture of the right ankle. January 15, 2025 at [place], x-rays were reportedly obtained showing fractures of on the right ankle, and pt was sent to the ER due to pain (pt often refuses pain meds). Daughter denies clear recollection from pt due to dementia. No clear new hip pain reported; daughter notes longstanding bedbound status (~1 year). Review of Systems Const: Denies: fever(s), chills or fatigue Eyes: Denies: change in vision Card: Reports: swelling of feet/ankles; Denies: chest pain or palpitations Resp: Denies: dyspnea GI: Denies: abdominal pain, nausea, vomiting, diarrhea or constipation Musc: Reports: extremity pain Skin/Breast: Denies: changes in skin color Neuro: Reports: difficulty walking; Denies: numbness in extremities Medications/Allergies Home Medications ?Medication ?Instructions ?Recorded ?Confirmed ?Last Taken ?Type bupropion HCl 150 mg 24 hr tablet, 150 mg PO QAM 08/09/24 01/15/25 Unknown History extended release (Wellbutrin XL) phenazopyridine 200 mg tablet 200 mg PO TID PRN dysuria 08/09/24 01/15/25 Unknown History cyanocobalamin (vitamin B-12) 1,000 mcg PO DAILY #30 tabs 08/15/24 01/15/25 Unknown Rx 1,000 mcg tablet (Vitamin B-12) atorvastatin 10 mg tablet (Lipitor) 10 mg PO DAILY #30 tabs 08/17/24 01/15/25 Unknown Rx baclofen 10 mg tablet 10 mg PO TID #90 tabs 09/02/24 01/15/25 Unknown Rx cetirizine 10 mg tablet (Zyrtec) 10 mg PO DAILY PRN allergy 09/02/24 01/15/25 Unknown Rx symptoms #30 tabs citalopram 20 mg tablet 20 mg PO DAILY #30 tabs 09/02/24 01/15/25 Unknown Rx fludrocortisone 0.1 mg tablet 0.1 mg PO DAILY #30 tabs 09/02/24 01/15/25 Unknown Rx oxycodone 10 mg tablet 10 mg PO Q8H PRN pain 30 days #90 10/21/24 01/15/25 Unknown Rx tabs ondansetron 4 mg disintegrating 4 mg PO .q6-8h PRN nausea and 11/21/24 01/15/25 Unknown Rx tablet vomiting #10 tabs pregabalin 75 mg capsule 75 mg PO TID #90 caps 01/08/25 01/15/25 Unknown Rx albuterol sulfate 2.5 mg/3 mL 2.5 mg (3 mL) inhalation 01/15/25 Unknown Rx (0.083 %) solution for nebulization QID.RESPIRATORY PRN Shortness Of Breath 90 days #500 mL aluminum-mag hydroxide-simethicone 5 ml PO 5XD PRN dyspepsia #3,000 mL 01/15/25 Unknown Rx 200 mg-200 mg-20 mg/5 mL oral susp (Maalox Advanced) ciprofloxacin HCl 500 mg tablet 500 mg PO BID@0900,2100 6 days #12 01/15/25 Unknown Rx tabs erythromycin 5 mg/gram (0.5 %) eye 1 applic eye-right QID 10 days #2 01/15/25 Unknown Rx ointment (3.5 gram tube) grams famotidine 20 mg tablet 20 mg PO DAILY #90 tabs 01/15/25 Unknown Rx levothyroxine 25 mcg capsule 25 mcg PO QAM #60 caps 01/15/25 Unknown Rx Allergies Allergy/AdvReac Type Severity Reaction Status Date / Time No Known Allergies Allergy Verified 11/09/24 13:56 Current Medications Generic Name Dose Route Start Last Admin Trade Name Freq PRN Reason Stop Dose Admin Atorvastatin Calcium 10 mg 01/15/25 09:01/15/25 08:11 Atorvastatin 10 Mg Tablet PO 10 mg DAILY BRAD Administration Baclofen 10 mg 01/15/25 09:00 01/15/25 08:11 Baclofen 10 Mg Tablet PO 10 mg TID BRAD Administration Bupropion HCl 150 mg 01/15/25 06:00 01/15/25 05:01 Bupropion Xl (24 Hr) 150 Mg Tablet PO 150 mg QAM BRAD Administration Cholestyramine Resin 4 gm 01/15/25 09:00 01/15/25 08:09 Cholestyramine Powder 4 Gm Pkt PO 4 gm TID BRAD Administration Ciprofloxacin HCl 500 mg 01/15/25 03:55 01/15/25 05:00 Ciprofloxacin 500 Mg Tablet PO 500 mg BID@0900,2100 BRAD Administration Protocol Citalopram Hydrobromide 20 mg 01/15/25 09:00 01/15/25 08:11 Citalopram 20 Mg Tablet PO 20 mg DAILY BRAD Administration Cyanocobalamin 1,000 mcg 01/15/25 09:00 01/15/25 08:11 Cyanocobalamin 1,000 Mcg Tablet PO 1,000 mcg DAILY BRAD Administration Diclofenac Sodium 4 applic 01/15/25 09:00 01/15/25 08:12 Diclofenac 1% Topical Gel 100 Gm TOPICAL 4 applic QID BRAD Administration Erythromycin 1 applic 01/15/25 09:00 01/15/25 08:11 Erythromycin Op Oint 1 Gm EYE-RIGHT 01/21/25 19:00 1 applic QID BRAD Administration Protocol Fludrocortisone Acetate 0.1 mg 01/15/25 09:00 01/15/25 08:11 Fludrocortisone 0.1 Mg Tablet PO 0.1 mg DAILY BRAD Administration Heparin Sodium (Porcine) 5,000 unit 01/15/25 04:45 01/15/25 05:01 Heparin 5,000 Unit/Ml Inj 1 Ml SUBCUT 5,000 unit Q8H BRAD Administration Oxycodone HCl 10 mg 01/15/25 04:43 01/15/25 08:10 Oxycodone 5 Mg Ir Tab/Cap PO 10 mg Q8H PRN Administration PAIN Pregabalin 75 mg 01/15/25 09:00 01/15/25 08:11 Pregabalin 75 Mg Capsule PO 75 mg TID BRAD Administration PFSH Acute PFSH: Medical History (Updated 01/20/25 @ 18:23 by Jayro Nunez DPM) Hypotension Depression Peripheral neuropathy Lower extremity weakness Gait instability Paraplegia Hyperlipidemia Surgical History History of cholecystectomy Hx of hysterectomy H/O cervical spine surgery ~2013 Hx of fracture of right hip [place] placement in initially. She had a follow up surgery one year later to remake ball and cup Surgeries ~2015 and 2016 Social History (Updated 01/15/25 @ 05:35 by Matias Luong MD) Smoking and tobacco/nicotine status: former use of tobacco/nicotine Quit status (tobacco/nicotine): has quit using Year quit tobacco: 2013 Former quit date comment: Quit after her back surgery - About 40 pack years Alcohol intake: current Alcohol intake frequency: holidays/special occasions only Alcohol type: wine Substance/Drug Use: never Additional social history: Wants limited interventions and DO NOT RESUSCITATE status as discussed 01/15/2025 with Matias Luong MD and daughter Dedra Barnard phone #[phone] Current occupational status: retired Previous occupational history: Retired from [employer] Vitals/I&O/Wt Last Vital Signs Temp 98.0 F 01/15/25 11:27 Pulse 65 01/15/25 11:27 Resp 17 01/15/25 11:27 BP 96/65 01/15/25 11:27 Pulse Ox 93 01/15/25 11:27 O2 Del Method Nasal Cannula 01/15/25 11:27 O2 Flow Rate 1.5 01/15/25 11:27 01/14/25 01/15/25 01/15/25 22:59 06:59 14:59 Intake Total 345 / 345 345 / 345 Balance 345 / 345 345 / 345 Weight last 48 hrs Weight 135 lb Weight 135 lb Weight 135 lb Physical Exam Const: COMMON NORMALS: no acute distress, patient oriented x3 and alert HENMT: COMMON NORMALS: normocephalic HEAD & SCALP: normocephalic Eye: COMMON NORMALS: Equal, round and reactive pupils present, EOMs intact bilaterally and conjunctivae normal CONJUNCTIVA: Yes conjunctivae normal PUPIL: Yes Equal, round and reactive pupils present Chest: CHEST: Yes Symmetrical chest wall rise Resp: COMMON NORMALS: normal respiratory effort, No use of accessory muscles and clear to auscultation bilaterally EFFORT & INSPECTION: Yes able to speak in complete sentences and Yes symmetric chest movement AUSCULTATION: clear to auscultation bilaterally Cardio: COMMON NORMALS: regular rate, regular rhythm, No murmurs present (Cardio) and Peripheral pulses 2+ throughout RATE: regular rate RHYTHM: regular rhythm PERIPHERAL PULSES: Peripheral pulses 2+ throughout Extremity: COMMON NORMALS: capillary refill normal, no calf tenderness and no pedal edema (Focal edema right ankle medial and lateral malleolus) GENERAL: Yes edema RIGHT LOWER EXTREMITY: Yes foot & digits (Tenderness to palpation at right distal fibula, tenderness to palpation at medial malleolus. No pain to palpation along the course of the Achilles tendon or calcaneus. No acute dislocation or gross deformity appreciated. No pain with [id number] compression of the right leg. No pain to palpation across the Lisfranc joint or fifth metatarsal base.) Neuro: COMMON NORMALS: patient oriented x3 SENSORIUM/ORIENTATION: Yes alert Psych: COMMON NORMALS: mental status grossly normal and cooperative Skin: COMMON NORMALS: no wounds GENERAL SKIN EXAM: no erythema TRAUMA: no lacerations HAIR: general thinning Data 01/15/25 01:10 01/15/25 10:58 Micro: Microbiology 01/15/25 04:43 Blood Culture - Preliminary Blood SPECIMEN COLLECTED 01/15/25 04:43 Blood Culture - Preliminary Blood SPECIMEN COLLECTED A&P Assessment and plan 1. Other closed fracture of distal end of right tibia, initial encounter: 2. Other closed fracture of distal end of right fibula, initial encounter: 3. Acute right ankle pain: Plan: 69-year-old female with dementia living at [facility] sustained a right distal tibial fracture and right distal fibular fracture date of injury unknown, patient is sedentary and largely nonambulatory. X-ray right tib-fib and CT scan right lower extremity taken 01/15/2025 demonstrates a nondisplaced distal tibial fracture that is extra-articular at the metaphyseal juncture and a Alejo Vaughn B fracture less than 2 mm of displacement right distal fibula. Right ankle mortise is congruent. Osteopenia appreciated on x-ray. Given patient's sedentary lifestyle and significant osteopenia, patient is largely nonambulatory for this reason recommended conservative treatment consisting of serial casting and x-rays. Well-padded short leg cast applied to the right lower extremity with ankle joint positioned in neutral. Patient to follow-up in podiatry clinic outpatient 02/04/2025 at 1:30 PM for cast removal and repeat x-rays and continued fracture care, sooner should she experience complications. Advised nonweightbearing right lower extremity. Patient declined pain medication. PDMP PDMP Reviewed: Not Reviewed Coding Level of Care Code Acute Code for Chg Fwd Diagnoses Other closed fracture of distal end of right tibia, initial encounter S82.391A Encounter type: initial encounter Fracture morphology: other fracture Other closed fracture of distal end of right fibula, initial encounter S82.831A Encounter type: initial encounter Fracture morphology: other fracture Acute right ankle pain M25.571 Chronicity: acute Comment CPT code 69073
--- NOTE | 2025-01-15 11:51 | P.DS_ITS ---
Discharge Providers Date of Admission: 01/15/25 03:52 Date of Discharge: January 15, 2025 Attending Provider at Admission: Matias Luong MD Attending Provider at Discharge: Tish Loving MD Primary Care Provider: Israel Sebastian MD Diagnoses at Discharge Discharge Diagnosis 1. Hypokalemia: 2. Acute UTI: 3. Fracture of distal end of right tibia: 4. Diarrhea: 5. Paraplegia: Reason for Visit Reason for Visit: Right distal end of tibia fracture Brief History: As per the previous retrospective notes and collateral history since the patient is a poor historian Olesya Lewis is a 69 year old female comes in from [facility]. Daughter Dedra Barnard phone #[phone] gives most of the history to the admitting physician. She stated that was few x-rayed her ankle and noticed a fracture and recommended that patient be brought into the emergency department. Dr. Cortez confirms right ankle fracture but also urinary tract infection and hypokalemia. Patient is referred for admission. History of immobility is as follows patient has neck spinal cyst 11 years ago th is was removed and took 3 to 4 months to get her walking but then she suffered a right hip fracture which was repaired and then she suffered another hip fracture where the ball went through the acetabulum and she had to have the acetabulum repaired. She did not walk after that and was wheelchair-bound after the second repair. She became bedridden within the last few months. Hospital Course Hospital Course During her hospital stay, the patient electrolytes were monitored and correction was given. Her potassium was 2.6 and sodium was 147. Adequate hydration was provided and after potassium correction and hydration the values were normalized. Patient also had low albumin and total protein which correlates with her physical deconditioning and malnourishment that needs outpatient management with the primary care. she was diagnosed with subclinical hypothyroidism and there is high possibility of underlying symptoms affecting her mentation and overal physical condition. Her TSH was sent and was high in the intermediate range of 7.66 and therefore based on her current symptoms, possible cognitive concerns, and physical deconditioning, started on levothyroxine 25mcg and to be followed with the PCP. T3 and T4 were also sent and were in normal range. UA was unremarkable for features suggestive of UTI. She had previous urine cultures and were sensitive. Recent urine cultures showed Pseudomonas aeruginosa sensitive and in October it was E. coli which was also sensitive to ciprofloxacin. Therefore based on her sensitivity she was kept on ciprofloxacin as inpatient. Blood cultures preliminary were negative and urine culture to be followed postdischarge. And any change in her further regimen as outpatient to be relayed to her respective disposition/caregiver postdischarge. After I reviewed labs imaging and diagnostics, patient to be discharged with ciprofloxacin to complete total 7 days. Her medications were reconciled. I could not find any indication to keep patient on colestyramine her liver functions and bilirubin normal. Patient to be discharged with follow-up primary care physician for further medication reconciliation and postdischarge follow-up. Compressed Gases Tester also reviewed the patient for her right distal tibial fracture and cast was applied. Considering patient is bedridden, nonweightbearing. Therefore the surgical intervention carries more risk than benefits. Patient to be discharged with follow-up with the podiatry in 2 weeks. Management and care provided in the best interest of the patient and optimization/stability of the clinical condition established before discharge. Physical Exam Narrative: General: Alert and cooperative, well-developed chronically ill-appearing female appears physically deconditioned CV: Regular rate and rhythm, S1-S2 normal and no added sounds Lungs: Clear but poor effort however adequate bilateral air entry and normal vesicular breathing, no stridor or wheezes found Abdomen: Diminished bowel tones soft nontender, no organomegaly Calves 1+ to 2 bilateral pretibial edema of the right ankle with mild angulation deformity at the distal lower right leg secondary to fracture. Adequate pulses palpable Skin warm and dry, no signs of decreased perfusion Discharge Data Studies Completed and Pending Completed Studies During Hospitalization Category Date Time Status CT ankle RT wo con* [id number] Stat Cat Scan 01/15/25 02:48 Completed XR pelvis 1-2V* [id number] Stat Exams 01/15/25 00:48 Completed XR tibia fibula LT 2V [id number] Stat Exams 01/15/25 00:48 Completed XR tibia fibula RT 2V [id number] Stat Exams 01/15/25 00:48 Completed Pending at discharge Category Date Time Status Basic Metabolic Panel AM LABS Lab 01/16/25 04:00 Ordered Blood Culture Stat Lab 01/15/25 04:43 Results CBC Auto Diff [Complete Blood Count w/Auto] AM LABS Lab 01/16/25 04:00 Ordered CMP [Comprehensive Metabolic Panel] AM LABS Lab 01/16/25 04:00 Ordered Urine Culture Stat Lab 01/15/25 03:00 Received Radiology Impressions Pelvis X-Ray 01/15/25 00:48 IMPRESSION: No acute fracture or dislocation within the limits of the single AP view exam. If high clinical concern for acute osseous injury is present, CT pelvis without contrast is warranted. Tibia/Fibula X-Ray 01/15/25 00:48 IMPRESSION: 1. Mildly displaced bimalleolar fractures. 2. Osteopenia. 3. Bimalleolar soft tissue edema, consistent with soft tissue/ligamentous injury. 4. Given substantial osteopenia, recommend CT ankle to exclude occult ankle fractures. Ankle CT 01/15/25 02:48 IMPRESSION: 1. Acute transverse fracture at the distal tibial metaphysis with mild impaction. No significant angulation or intra-articular extension. 2. Acute Vaughn B lateral malleolar fracture with mild impaction but without significant displacement or angulation. Laboratory Results WBC 8.90 10^3/uL (3.29-11.43) 01/15/25 01:10 RBC 4.63 10^6/uL (3.85-5.65) 01/15/25 01:10 Hgb 13.30 g/dL (11.27-16.99) 01/15/25 01:10 Hct 41.2 % (36-47) 01/15/25 01:10 MCV 89.0 fl (85-98) 01/15/25 01:10 MCH 28.7 pg (27-33) 01/15/25 01:10 MCHC 32.3 g/dL (30-55) 01/15/25 01:10 RDW 16.1 % (12.1-15.1) H 01/15/25 01:10 Plt Count 279 10^3/cmm (157-399) 01/15/25 01:10 MPV 11.3 fL (7.4-10.4) H 01/15/25 01:10 Neut % (Auto) 52.8 % 01/15/25 01:10 Lymph % (Auto) 33.6 % 01/15/25 01:10 [place] % (Auto) 10.6 % 01/15/25 01:10 Eos % (Auto) 1.7 % 01/15/25 01:10 Baso % (Auto) 0.6 % 01/15/25 01:10 Neut # (Auto) 4.71 10^3/uL (1.8-7.7) 01/15/25 01:10 Lymph # (Auto) 3.0 10^3/uL (0.8-4.8) 01/15/25 01:10 [place] # (Auto) 0.9 10^3/uL (0.2-0.9) 01/15/25 01:10 Eos # (Auto) 0.2 10^3/uL (0.0-0.8) 01/15/25 01:10 Baso # (Auto) 0.1 10^3/uL (0.0-0.1) 01/15/25 01:10 Nucleated RBC % (auto) 0 % 01/15/25 01:10 Nucleated RBCs # 0.0 /100WBC 01/15/25 01:10 Sodium 145 mmol/L (136-145) 01/15/25 10:58 Potassium 3.8 mmol/L (3.5-5.1) 01/15/25 10:58 Chloride 102 mmol/L (98-107) 01/15/25 10:58 Carbon Dioxide 34 mmol/L (22-29) H 01/15/25 10:58 Anion Gap 12.8 (5-19) 01/15/25 10:58 BUN 14 mg/dL (8-23) 01/15/25 10:58 Creatinine 0.6 mg/dL (0.5-0.9) 01/15/25 10:58 GFR Calculation Not Reportable 01/15/25 10:58 Glucose 77 mg/dL (65-115) 01/15/25 10:58 Calculated Osmolality 299 mOsm/kg (285-295) H 01/15/25 10:58 Lactic Acid 1.8 mmol/L (0.5-2.2) 01/15/25 04:45 Calcium 8.4 mg/dL (8.5-10.5) L 01/15/25 10:58 Phosphorus 2.4 mg/dL (2.5-4.5) L 01/15/25 01:10 Magnesium 1.8 mg/dL (1.7-2.3) 01/15/25 01:10 Total Bilirubin 0.5 mg/dL (0.15-1.2) 01/15/25 10:58 AST 17 U/L (0-32) 01/15/25 10:58 ALT 12 U/L (0-33) 01/15/25 10:58 Alkaline Phosphatase 97 U/L (35-105) 01/15/25 10:58 Total Protein 5.5 g/dL (6.6-8.7) L 01/15/25 10:58 Albumin 2.5 g/dL (3.5-5.2) L 01/15/25 10:58 Globulin 3.0 g/dL (1.3-4.6) 01/15/25 10:58 TSH 7.66 uIU/mL (0.27-4.20) H 01/15/25 01:10 Urine Color Dark yellow (Yellow) A 01/15/25 03:00 Urine Appearance Turbid (CLEAR) A 01/15/25 03:00 Urine pH 6.5 (5-7) 01/15/25 03:00 Ur Specific [place] 1.017 (1.005-1.030) 01/15/25 03:00 Urine Protein 2+ (Negative) A 01/15/25 03:00 Urine Glucose (UA) Negative (Normal) 01/15/25 03:00 Urine Ketones Trace (Negative) 01/15/25 03:00 Urine Blood 3+ (Negative) A 01/15/25 03:00 Urine Nitrate Positive (Negative) A 01/15/25 03:00 Urine Bilirubin Negative (Negative) 01/15/25 03:00 Urine Urobilinogen 1.0 mg/dL (Negative) 01/15/25 03:00 Ur Leukocyte Esterase 3+ (Negative) A 01/15/25 03:00 Urine RBC 21-50 /hpf (0-2) H 01/15/25 03:00 Urine WBC >100 /hpf (0-5) H 01/15/25 03:00 Ur Squamous Epith Cells 0-5 /hpf (0-5) 01/15/25 03:00 Amorphous Sediment Not Reportable 01/15/25 03:00 Urine Bacteria 4+ /hpf (NONE) H 01/15/25 03:00 Hyaline Casts 19.43 /lpf 01/15/25 03:00 Vitals Last Vital Signs Temp 98.0 F 01/15/25 11:27 Pulse 65 01/15/25 11:27 Resp 17 01/15/25 11:27 BP 96/65 01/15/25 11:27 Pulse Ox 93 01/15/25 11:27 O2 Del Method Nasal Cannula 01/15/25 11:27 O2 Flow Rate 1.5 01/15/25 11:27 Discharge Plan Discharge Patient Disposition: Xfer [facility] Condition: Stable Prescriptions: New albuterol sulfate 2.5 mg /3 mL (0.083 %) Solution For Nebulization 2.5 mg inhalation QID.RESPIRATORY PRN (Reason: Shortness Of Breath) 90 Days Qty: 500 0RF ciprofloxacin HCl 500 mg Tablet 500 mg PO BID@0900,2100 6 Days Qty: 12 0RF erythromycin 5 mg/gram (0.5 %) Ointment 1 applic eye-right QID 10 Days Qty: 2 0RF famotidine 20 mg tablet 20 mg PO DAILY Qty: 90 0RF alum-mag hydroxide-simeth [Maalox Advanced] 200-200-20 mg/5 mL suspension 5 ml PO 5XD PRN (Reason: dyspepsia) Qty: 3000 0RF Rx Instructions: administer between meals and at bedtime levothyroxine 25 mcg capsule 25 mcg PO QAM Qty: 60 0RF Continued phenazopyridine 200 mg tablet 200 mg PO TID PRN (Reason: dysuria) bupropion HCl [Wellbutrin XL] 150 mg tablet extended release 24 hr 150 mg PO QAM baclofen 10 mg tablet 10 mg PO TID Qty: 90 3RF citalopram 20 mg tablet 20 mg PO DAILY Qty: 30 6RF fludrocortisone 0.1 mg tablet 0.1 mg PO DAILY Qty: 30 6RF cetirizine [Zyrtec] 10 mg tablet 10 mg PO DAILY PRN (Reason: allergy symptoms) Qty: 30 6RF cyanocobalamin (vitamin B-12) [Vitamin B-12] 1,000 mcg tablet 1,000 mcg PO DAILY Qty: 30 6RF atorvastatin [Lipitor] 10 mg tablet 10 mg PO DAILY Qty: 30 6RF oxycodone 10 mg tablet 10 mg PO Q8H PRN (Reason: pain) 30 Days Qty: 90 0RF pregabalin 75 mg capsule 75 mg PO TID Qty: 90 2RF ondansetron 4 mg tablet,disintegrating 4 mg PO .q6-8h PRN (Reason: nausea and vomiting) Qty: 10 0RF Discontinued diphenoxylate-atropine [Lomotil] 2.5-0.025 mg tablet 1 tab PO Q6H PRN (Reason: Acid Reflux) meclizine 12.5 mg tablet 12.5 mg PO BID PRN (Reason: dizziness) Qty: 60 3RF [place] for DC: Podiatry Discharge Order = DC NOW: Discharge Order (Routine); Ordered 01/15/25 Ordered By: Tish Loving Referrals: [facility] [Outside] [facility] [Outside] Jayro Nunez DPM [Physician, Podiatry] - 2 weeks Referral Note: FU for right distal tibital fracture We have notified your physician's clinic of the need for a follow-up appointment to be scheduled. If you have not heard from them within the next 2 business days, please call them directly. Israel Sebastian MD [Primary Care Provider, Family Practice] - 4-7 days Referral Note: post discharge follow up Discharge Diet: Advance as tolerated Discharge Activity: Limit activity as instructed and Bedrest Patient Instructions: Opioid Safety, Patient Portal & [place]oke Instructions Discharge Attestations Time Spent in Discharge Care*: greater than 30 min Specific Discharge Activities: educating patient, educating and/or supporting family/caregiver, discussing with pcp/other providers, discussing with case work aide/social workers/dc planners, documenting/other paperwork and evaluating patient/reviewing data Status at Discharge: Cognitive status at discharge: mildly impaired cognition , Behavioral status at discharge: cooperative , Functional status at discharge: bed bound , Overall status at discharge: patient is back to baseline Quality Metrics Clinical Quality Measures [ No reported AMI, CVA or VTE this stay] Coding Level of Care Code 80358 Diagnoses Hypokalemia E87.6 Acute UTI N39.0 Fracture of distal end of right tibia S82.301A Encounter type: initial encounter Fracture morphology: unspecified fracture morphology Fracture type: closed Diarrhea R19.7 Paraplegia G82.20
--- NOTE | 2025-01-15 11:58 | PC.NURSE ---
Podiatry and this nurse with nursing education consultant casted right lower extremity.
[2025-01-15 12:29] LABS: Free T4 Free Thyroxine 1.47 ng/dL (0.82-1.77)
== END 2025-01-15 14:30 | disposition intermediate care facility (04) | DRG 690 ==
LOC: ER 03:30 → MEDSURG 03:53
PROVIDERS: Admitting Provider Internal Medicine; Emergency Provider Student in an Organized Health Care Education/Training Program; PCP Family Medicine; Visit Provider Student in an Organized Health Care Education/Training Program
DX: N39.0 Urinary tract infection, site not specified (principal); G82.20 Paraplegia, unspecified; E46 Unspecified protein-calorie malnutrition; F03.93 Unspecified dementia, unspecified severity, with mood disturbance; E87.6 Hypokalemia; S82.301A Unspecified fracture of lower end of right tibia, initial encounter for closed fracture; X58.XXXA Exposure to other specified factors, initial encounter; Y92.129 Unspecified place in nursing home as the place of occurrence of the external cause; R19.7 Diarrhea, unspecified; E03.9 Hypothyroidism, unspecified; Z68.21 Body mass index [BMI] 21.0-21.9, adult; Z66 Do not resuscitate; G62.9 Polyneuropathy, unspecified; E78.5 Hyperlipidemia, unspecified; Z87.891 Personal history of nicotine dependence
CPT/HCPCS: 36415; 72170; 73590; 73700; 80053; 81001; 83605; 83735; 84100; 84439; 84443; 84481; 85025; 87040; 87077; 87086; 87186; 93005; 96361; 96372; 96374; 99285; J0696; J1644; J3480; J3535; J9999